=== PATIENT | female | born 1995 | race Caucasian/White ===

== ENCOUNTER 2017-12-27 09:09 | Emergency (ER) | payer MEDICAID, OTHER ==
[~2017-12-27] VITALS: Ht 160 cm; Wt 64.0 kg
[~2017-12-27 09:09] MED LIST: AC500T PO; CPR500T PO; DCS100C PO; DICY10CA59 PO; DOCU100C37 PO; DOXY1TAB3 PO; FAMO20TA5 PO; FERR325T5 PO; HYDR-3720 PO; IBP600T1 PO; IBUP-1773 PO; Ibuprofen PO; METR500T PO; ONDA4TAB8 PO; ONDA8TAB9 PO; OXYC-12 PO; PNV91TAB3 PO; PREN1TAB39 PO; PREN1TAB86 PO; PRM25T PO
--- OUTSIDE RECORDS SUMMARY | 2017-12-27 09:18 | XMS REPORT | Continuity of Care Document ---
Demographics Preferred Language Unknown Marital Status Unknown Buddhism Affiliation Unknown Race Unknown Ethnic Group Unknown Author Author [facility] Address Unknown Phone Unavailable Allergies Active Description Code Type Severity Reaction Onset Reported/Identified Relationship to Patient Clinical Status Yes No Known Drug Allergies [id number] Drug Allergy Unknown N/A 05/04/2016 Medications There is no data. Problems Date Dx Coded Attending Type Code Diagnosis Diagnosed By 11/02/2011 Ot 646.83 PREG COMPL NEC-ANTEPART 11/02/2011 Ot 787.01 NAUSEA WITH VOMITING 11/02/2011 Ot 789.00 ABDOMINAL PAIN, UNSPECIFIED SITE 12/19/2011 Ot 646.83 PREG COMPL NEC-ANTEPART 12/19/2011 Ot 789.00 ABDOMINAL PAIN, UNSPECIFIED SITE 12/29/2011 Ot 644.03 THRT WILSON LABOR-ANTEPART 02/22/2012 Ot 644.13 THREAT LABOR NEC-ANTEPAR 02/29/2012 Ot 657.01 POLYHYDRAMNIOS,DEL W OR W/O MENTN ANTEPA 02/29/2012 Ot 659.71 ABN DEL FET HT RT/RHYTHM,W OR W/O MENTIO 02/29/2012 Ot 663.31 CORD ENTANGLE NEC-DELIV 02/29/2012 Ot V06.1 DIPHTHERIA- TETANUS-PERTUSSIS, COMBINED [ 02/29/2012 Ot V27.0 DELIVER- SINGLE LIVEBORN 01/01/2013 V03.89 MENINGOCOCCAL DX 03/07/2013 BRIEN MIXON Ot 276.51 DEHYDRATION 03/07/2013 BRIEN MIXON Ot 535.50 UNSP GASTRITIS GASTRODUODENITIS W/O ME 03/07/2013 BRIEN MIXON Ot 599.0 URIN TRACT INFECTION NOS 03/07/2013 BRIEN MIXON Ot 789.06 ABDOMINAL PAIN, EPIGASTRIC 07/16/2013 LO OLIVEIRA, SILKE Gayle Ot 616.10 VAGINITIS NOS 07/16/2013 LO OLIVEIRA, SILKE Gayle Ot 789.00 ABDOMINAL PAIN, UNSPECIFIED SITE 04/16/2014 CHAU OLIVEIRA, VANNA Abernathy Ot 661.21 UTERINE INERT NEC-DELIV 04/16/2014 CHAU OLIVEIRA, VANNA Abernathy Ot V06.1 [id number], COMBINED [ 04/16/2014 CHAU OLIVEIRA, VANNA Abernathy Ot V23.7 INSUFFICIENT CARE 04/16/2014 CHAU OLIVEIRA, VANNA Abernathy Ot V27.0 DELIVER-SINGLE LIVEBORN 08/01/2015 Ot 646.83 08/01/2015 Ot 789.00 08/02/2015 RADHIKA BENITEZ FATUMA Bonds Ot G44.209 TENSION-TYPE HEADACHE, UNSPECIFIED, NOT 08/02/2015 RADHIKA BENITEZ FATUMA Bonds Ot Z33.1 STATE, INCIDENTAL 08/16/2015 LO OLIVEIRA, SILKE Gayle Ot O21.0 MILD HYPEREMESIS GRAVIDARUM 08/16/2015 OL OLIVEIRA, SILKE Gayle Ot Z3A.00 WEEKS OF GESTATION OF NOT SPEC 08/16/2015 Ot 646.83 08/16/2015 Ot 789.00 11/02/2015 Ot 646.83 11/02/2015 Ot 789.00 11/02/2015 JASSI MONTEZ DO Ot N89.8 OTHER SPECIFIED NONINFLAMMATORY DISORDER 11/02/2015 JASSI MONTEZ DO Ot O99.89 OTH DISEASES AND CONDITIONS COMPL PREG/C 11/02/2015 JASSI MONTEZ DO Ot Z3A.20 20 WEEKS GESTATION OF 12/01/2015 JASSI MONTEZ DO Ot N89.8 12/01/2015 JASSI MONTEZ DO Ot O99.89 12/01/2015 JASSI MONTEZ DO Ot Z3A.20 12/24/2015 Ot 646.83 PREG COMPL NEC-ANTEPART 12/24/2015 Ot 789.00 ABDOMINAL PAIN, UNSPECIFIED SITE 12/25/2015 VANNA RITCHIE MD Ot O60.03 LABOR WITHOUT DELIVERY, THIRD TR 12/25/2015 VANNA RITCHIE MD, Ot Z3A.28 28 WEEKS GESTATION OF 12/27/2015 VANNA RITCHIE MD, Ot O60.03 LABOR WITHOUT DELIVERY, THIRD TR 12/27/2015 VANNA RITCHIE MD, Ot Z3A.28 28 WEEKS GESTATION OF 02/05/2016 Ot 646.83 PREG COMPL NEC-ANTEPART 02/05/2016 Ot 789.00 ABDOMINAL PAIN, UNSPECIFIED SITE 02/05/2016 VANNA RITCHIE MD Ot O47.9 FALSE LABOR, UNSPECIFIED 02/05/2016 VANNA RITCHIE MD, Ot Z3A.00 WEEKS OF GESTATION OF NOT SPEC 02/11/2016 VANNA RITCHIE MD, Ot O47.9 FALSE LABOR, UNSPECIFIED 02/11/2016 VANNA RITCHIE MD, Ot Z3A.00 WEEKS OF GESTATION OF NOT SPEC 03/02/2016 JASSI MONTEZ DO Ot D62 ACUTE POSTHEMORRHAGIC ANEMIA 03/02/2016 JASSI MONTEZ DO Ot D69.6 THROMBOCYTOPENIA, UNSPECIFIED 03/02/2016 JASSI MONTEZ DO Ot O23.93 UNSP TRACT INFECTION IN , TH 03/02/2016 JASSI MONTEZ DO Ot O45.93 PREMATURE SEPARATION OF PLACENTA, UNSP, 03/02/2016 JASSI MONTEZ DO Ot O90.81 ANEMIA OF THE PUERPERIUM 03/02/2016 JASSI MONTEZ DO Ot O99.13 OTH DIS OF THE BLD/BLD-FORM ORG/IMMUN ME 03/02/2016 JASSI MONTEZ DO Ot Z23 ENCOUNTER FOR IMMUNIZATION 03/02/2016 JASSI MONTEZ DO Ot Z37.0 SINGLE LIVE 03/02/2016 JASSI MONTEZ DO Ot Z3A.38 38 WEEKS GESTATION OF 03/09/2016 Ot 646.83 PREG COMPL NEC-ANTEPART 03/09/2016 Ot 789.00 ABDOMINAL PAIN, UNSPECIFIED SITE 03/15/2016 Ot 646.83 PREG COMPL NEC-ANTEPART 03/15/2016 Ot 789.00 ABDOMINAL PAIN, UNSPECIFIED SITE 05/02/2016 Ot 646.83 PREG COMPL NEC-ANTEPART 05/02/2016 Ot 789.00 ABDOMINAL PAIN, UNSPECIFIED SITE 05/04/2016 MEI GOODEN APRN Ot K58.0 IRRITABLE BOWEL SYNDROME WITH DIARRHEA 05/05/2016 MEI GOODEN APRN Ot K58.0 IRRITABLE BOWEL SYNDROME WITH DIARRHEA Procedures Code Description Performed By Performed On 72.71 02/27/2012 73.6 04/14/2014 [id number] 03/01/2016 Results Test Result Range Complete urinalysis with reflex to culture - 05/04/16 20:46 Urine color determination YELLOW NRG Urine clarity determination CLEAR NRG Urine pH measurement by test strip 5 5-9 Specific gravity of urine by test strip 1.020 1.016- 1.022 Urine protein assay by test strip, semi-quantitative NEGATIVE NEGATIVE Urine glucose detection by automated test strip NEGATIVE NEGATIVE Erythrocytes detection in urine sediment by light microscopy 1+ NEGATIVE Urine ketones detection by automated test strip NEGATIVE NEGATIVE Urine nitrite detection by test strip NEGATIVE NEGATIVE Urine total bilirubin detection by test strip NEGATIVE NEGATIVE Urine urobilinogen measurement by automated test strip (mass/volume) NORMAL NORMAL Urine leukocyte esterase detection by dipstick NEGATIVE NEGATIVE Automated urine sediment erythrocyte count by microscopy (number/high power field) [HPF] NRG Automated urine sediment leukocyte count by microscopy (number/high power field ) RARE NRG Bacteria detection in urine sediment by light microscopy TRACE NRG Squamous epithelial cells detection in urine sediment by light microscopy 2-5 NRG Crystals detection in urine sediment by light microscopy NONE NRG Casts detection in urine sediment by light microscopy NONE NRG Mucus detection in urine sediment by light microscopy SMALL NRG Complete urinalysis with reflex to culture NO NRG Complete blood count (CBC) with automated white blood cell (WBC) differential - 05/04/16 20:55 Blood leukocytes automated count (number/volume) 6.5 10*3/uL 4.3-11.0 Blood erythrocytes automated count (number/volume) 4.64 10*6/uL 4.35-5.85 Venous blood hemoglobin measurement (mass/volume) 13.4 g/dL 11.5-16.0 Blood hematocrit (volume fraction) 40 % 35-52 Automated erythrocyte mean corpuscular volume 86 [foz_us] 80-99 Automated erythrocyte mean corpuscular hemoglobin (mass per erythrocyte) 29 pg 25-34 Automated erythrocyte mean corpuscular hemoglobin concentration measurement ( mass/volume) 34 g/dL 32-36 Automated erythrocyte distribution width ratio 14.5 % 10.0-14.5 Automated blood platelet count (count/volume) 243 10*3/uL 130-400 Automated blood platelet mean volume measurement 10.7 [foz_us] 7.4-10.4 Automated blood neutrophils/100 leukocytes 56 % 42-75 Automated blood lymphocytes/100 leukocytes 36 % 12-44 Blood monocytes/100 leukocytes 7 % 0-12 Automated blood eosinophils/100 leukocytes 1 % 0-10 Automated blood basophils/100 leukocytes 0 % 0-10 Blood neutrophils automated count (number/volume) 3.6 10*3 1.8-7.8 Blood lymphocytes automated count (number/volume) 2.4 10*3 1.0-4.0 Blood monocytes automated count (number/volume) 0.5 10*3 0.0-1.0 Automated eosinophil count 0.1 10*3/uL 0.0-0.3 Automated blood basophil count (count/volume) 0.0 10*3/uL 0.0-0.1 Comprehensive metabolic panel - 05/04/16 20:55 Serum or plasma sodium measurement (moles/volume) 141 mmol/L 135-145 Serum or plasma potassium measurement (moles/volume) 3.7 mmol/L 3.6-5.0 Serum or plasma chloride measurement (moles/volume) 108 mmol/L 98-107 Carbon dioxide 20 mmol/L 21-32 Serum or plasma anion gap determination (moles/volume) 13 mmol/L 5-14 Serum or plasma urea nitrogen measurement (mass/volume) 13 mg/dL 7-18 Serum or plasma creatinine measurement (mass/volume) 0.73 mg/dL 0.60-1.30 Serum or plasma urea nitrogen/creatinine mass ratio 18 NRG Serum or plasma creatinine measurement with calculation of estimated glomerular filtration rate > NRG Serum or plasma glucose measurement (mass/volume) 89 mg/dL 70-105 Serum or plasma calcium measurement (mass/volume) 9.3 mg/dL 8.5-10.1 Serum or plasma total bilirubin measurement (mass/volume) 0.6 mg/dL 0.1-1.0 Serum or plasma alkaline phosphatase measurement (enzymatic activity/volume) 107 U/L 40-136 Serum or plasma aspartate aminotransferase measurement (enzymatic activity/ volume) 13 U/L 5-34 Serum or plasma alanine aminotransferase measurement (enzymatic activity/volume ) 18 U/L 0-55 Serum or plasma protein measurement (mass/volume) 7.3 g/dL 6.4-8.2 Serum or plasma albumin measurement (mass/volume) 4.2 g/dL 3.2-4.5 Lipase - 05/04/16 20:55 Lipase 45 U/L 8-78 Serum or plasma C reactive protein measurement (mass/volume) - 05/04/16 20:55 Serum or plasma C reactive protein measurement (mass/volume) 1.35 mg /dL 0.00-0.50 Erythrocyte sedimentation rate by westergren method - 05/04/16 20:55 Erythrocyte sedimentation rate by westergren method 11 mm 0-20 Complete blood count (CBC) with automated white blood cell (WBC) differential - 08/09/16 19:50 Blood leukocytes automated count (number/volume) 9.3 10*3/uL 4.3-11.0 Blood erythrocytes automated count (number/volume) 4.66 10*6/uL 4.35-5.85 Venous blood hemoglobin measurement (mass/volume) 13.6 g/dL 11.5-16.0 Blood hematocrit (volume fraction) 40 % 35-52 Automated erythrocyte mean corpuscular volume 86 [foz_us] 80-99 Automated erythrocyte mean corpuscular hemoglobin (mass per erythrocyte) 29 pg 25-34 Automated erythrocyte mean corpuscular hemoglobin concentration measurement ( mass/volume) 34 g/dL 32-36 Automated erythrocyte distribution width ratio 13.1 % 10.0-14.5 Automated blood platelet count (count/volume) 243 10*3/uL 130-400 Automated blood platelet mean volume measurement 10.9 [foz_us] 7.4-10.4 Automated blood neutrophils/100 leukocytes 77 % 42-75 Automated blood lymphocytes/100 leukocytes 17 % 12-44 Blood monocytes/100 leukocytes 6 % 0-12 Automated blood eosinophils/100 leukocytes 1 % 0-10 Automated blood basophils/100 leukocytes 0 % 0-10 Blood neutrophils automated count (number/volume) 7.1 10*3 1.8-7.8 Blood lymphocytes automated count (number/volume) 1.6 10*3 1.0-4.0 Blood monocytes automated count (number/volume) 0.5 10*3 0.0-1.0 Automated eosinophil count 0.1 10*3/uL 0.0-0.3 Automated blood basophil count (count/volume) 0.0 10*3/uL 0.0-0.1 Comprehensive metabolic panel - 08/09/16 19:50 Serum or plasma sodium measurement (moles/volume) 139 mmol/L 135-145 Serum or plasma potassium measurement (moles/volume) 3.4 mmol/L 3.6-5.0 Serum or plasma chloride measurement (moles/volume) 107 mmol/L 98-107 Carbon dioxide 22 mmol/L 21-32 Serum or plasma anion gap determination (moles/volume) 10 mmol/L 5-14 Serum or plasma urea nitrogen measurement (mass/volume) 8 mg/dL 7-18 Serum or plasma creatinine measurement (mass/volume) 0.71 mg/dL 0.60-1.30 Serum or plasma urea nitrogen/creatinine mass ratio 11 NRG Serum or plasma creatinine measurement with calculation of estimated glomerular filtration rate > NRG Serum or plasma glucose measurement (mass/volume) 128 mg/dL 70-105 Serum or plasma calcium measurement (mass/volume) 9.3 mg/dL 8.5-10.1 Serum or plasma total bilirubin measurement (mass/volume) 0.7 mg/dL 0.1-1.0 Serum or plasma alkaline phosphatase measurement (enzymatic activity/volume) 97 U/L 40-136 Serum or plasma aspartate aminotransferase measurement (enzymatic activity/ volume) 17 U/L 5-34 Serum or plasma alanine aminotransferase measurement (enzymatic activity/volume ) 13 U/L 0-55 Serum or plasma protein measurement (mass/volume) 6.8 g/dL 6.4-8.2 Serum or plasma albumin measurement (mass/volume) 4.2 g/dL 3.2-4.5 Magnesium - 08/09/16 19:50 Magnesium 2.0 mg/dL 1.8-2.4 Serum or plasma creatine kinase measurement (enzymatic activity/volume) - 08/09 19:50 Serum or plasma creatine kinase measurement (enzymatic activity/volume) 57 U/L 29-168 Serum or plasma creatine kinase MB measurement (enzymatic activity/volume) - 19:50 Serum or plasma creatine kinase MB measurement (enzymatic activity/volume) 0.7 ng/mL <6.6 Serum or plasma choriogonadotropin ( test) detection - 08/09/16 19:50 Serum or plasma choriogonadotropin ( test) detection NEGATIVE NEGATIVE Serum or plasma thyrotropin measurement by detection limit <=0.05 miu/l (units/ volume) - 08/09/16 19:50 Serum or plasma thyrotropin measurement by detection limit <=0.05 miu/l (units/ volume) 1.25 u[iU]/mL 0.35-4.94 Serum or plasma ethanol measurement (mass/volume) - 08/09/16 19:50 Serum or plasma ethanol measurement (mass/volume) < mg/dL <10 Complete urinalysis with reflex to culture - 08/09/16 21:20 Urine color determination YELLOW NRG Urine clarity determination VERY CLOUDY NRG Urine pH measurement by test strip 8 5-9 Specific gravity of urine by test strip 1.015 1.016- 1.022 Urine protein assay by test strip, semi-quantitative 1+ NEGATIVE Urine glucose detection by automated test strip NEGATIVE NEGATIVE Erythrocytes detection in urine sediment by light microscopy 1+ NEGATIVE Urine ketones detection by automated test strip NEGATIVE NEGATIVE Urine nitrite detection by test strip NEGATIVE NEGATIVE Urine total bilirubin detection by test strip NEGATIVE NEGATIVE Urine urobilinogen measurement by automated test strip (mass/volume) 1 mg/dL NORMAL Urine leukocyte esterase detection by dipstick NEGATIVE NEGATIVE Automated urine sediment erythrocyte count by microscopy (number/high power field) RARE NRG Automated urine sediment leukocyte count by microscopy (number/high power field ) NONE NRG Bacteria detection in urine sediment by light microscopy NONE NRG Squamous epithelial cells detection in urine sediment by light microscopy 0-2 NRG Crystals detection in urine sediment by light microscopy PRESENT NRG Casts detection in urine sediment by light microscopy NONE NRG Mucus detection in urine sediment by light microscopy NEGATIVE NRG Complete urinalysis with reflex to culture NO NRG Amorphous sediment detection in urine sediment by light microscopy LARGE JIM PHOSPHATE NRG Urine drug screening test - 08/09/16 21:20 Urine phencyclidine detection by screening method NEGATIVE NEGATIVE Urine benzodiazepines detection by screening method NEGATIVE NEGATIVE Urine cocaine detection NEGATIVE NEGATIVE Urine amphetamines detection by screening method NEGATIVE NEGATIVE Urine methamphetamine detection by screening method NEGATIVE NEGATIVE Urine cannabinoids detection by screening method NEGATIVE NEGATIVE Urine opiates detection by screening method NEGATIVE NEGATIVE Urine barbiturates detection NEGATIVE NEGATIVE Screening urine tricyclic antidepressants detection NEGATIVE NEGATIVE Urine methadone detection by screening method NEGATIVE NEGATIVE Urine oxycodone detection NEGATIVE NEGATIVE Urine propoxyphene detection NEGATIVE NEGATIVE CULTURE, URINE - 12/13/17 17:08 CULTURE, URINE, ROUTINE SEE NOTE NRG Encounters ACCT No. Visit Date/Time Discharge Status Pt. Type Provider Facility Loc./Unit Complaint [id number] 01/01/2013 13:24:00 Document Registration [id number] 08/05/2012 11:18:57 RECURRING [id number] 08/09/2016 19:42:00 08/09/2016 21:58:00 DIS Emergency RADHIKA FATUMA [facility] ER ANXIETY ATTACK [id number] 05/04/2016 20:42:00 05/04/2016 22:17:00 DIS Emergency MEI GOODEN DYE JIG OPERATOR [facility] ER ABD PAIN [id number] 02/29/2016 22:10:00 03/02/2016 15:30:00 DIS Inpatient JASSI MONTEZ DO [facility] LDRP LABOR [id number] 02/05/2016 21:22:00 02/05/2016 23:39:00 DIS Outpatient VANNA RITCHIE MD [facility] WSo CONTRACTIONS 34 WKS PREG [id number] 12/24/2015 22:47:00 12/25/2015 10:30:00 DIS Outpatient VANNA RITCHIE MD [facility] WSo CONTRACTIONS [id number] 11/02/2015 10:56:00 11/02/2015 13:16:00 DIS Outpatient JASSI MONTEZ DO [facility] WSo LEAKING FLUID 21 WKS PREG [id number] 08/16/2015 18:43:00 08/16/2015 19:12:00 DIS Emergency SILKE BLANCHARD MD [facility] ER VOMITING [id number] 08/01/2015 23:52:00 08/02/2015 02:01:00 DIS Emergency FTAUMA GARRIDO DO [facility] ER PASCUAL,LEFT ARM NUMBNESS,LEFT SIDE OF FACE NUMB [id number] 04/14/2014 18:11:00 04/16/2014 18:45:00 DIS Inpatient VANNA RITCHIE MD [facility] LDRP C/O CONTRACTIONS [id number] 04/14/2014 17:57:00 04/14/2014 23:59:59 CLS Emergency [id number] 07/16/2013 00:59:00 07/16/2013 03:16:00 DIS Emergency SILKE BLANCHARD MD [facility] ER ABD PAIN [id number] 03/07/2013 16:14:00 03/07/2013 20:10:00 DIS Emergency BRIEN MIXON [facility] ER ABD PAIN [id number] 02/26/2012 19:50:00 Document Registration [id number] 02/22/2012 20:13:00 Document Registration [id number] 12/29/2011 14:48:00 Document Registration [id number] 12/19/2011 08:37:00 Document Registration [id number] 11/10/2011 07:24:00 Document Registration [id number] 11/02/2011 12:46:00 Document Registration [id number] 12/13/2017 16:20:00 12/13/2017 23:59:59 [facility] Outpatient TAURUS TIM LAC [facility] [id number] 12/13/2017 16:20:00 Document Registration
[2017-12-27 09:50] LABS: BASOPHILS % (AUTO) 0 % (0-10); EOSINOPHILS % (AUTO) 1 % (0-10); HEMATOCRIT 41 % (35-52); HEMOGLOBIN 13.8 G/DL (11.5-16.0); LYMPHOCYTES # (AUTO) 1.2 X 10^3 (1.0-4.0); LYMPHOCYTES % (AUTO) 23 % (12-44); MEAN CORPUSCULAR HEMOGLOBIN 30 PG (25-34); MEAN CORPUSCULAR HGB CONC 33 G/DL (32-36); MEAN CORPUSCULAR VOLUME 90 FL (80-99); MEAN PLATELET VOLUME 10.3 FL (7.4-10.4); MONOCYTES # (AUTO) 0.4 X 10^3 (0.0-1.0); MONOCYTES % (AUTO) 6 % (0-12); NEUTROPHILS # (AUTO) 3.8 X 10^3 (1.8-7.8); NEUTROPHILS % (AUTO) 70 % (42-75); PLATELET COUNT 218 10^3/uL (130-400); RED CELL DISTRIBUTION WIDTH 13.3 % (10.0-14.5); WHITE BLOOD COUNT 5.5 10^3/uL (4.3-11.0)
[2017-12-27 10:08] LABS: BILIRUBIN,URINE NEGATIVE (NEGATIVE); CLARITY,URINE CLEAR; COLOR,URINE YELLOW; GLUCOSE, URINE (UA) NEGATIVE (NEGATIVE); KETONES,URINE NEGATIVE (NEGATIVE); LEUKOCYTE ESTERASE ,URINE 2+ (NEGATIVE); NITRITE,URINE NEGATIVE (NEGATIVE); PH,URINE 7 (5-9); PROTEIN,URINE 2+ (NEGATIVE); UROBILINOGEN,URINE 1 MG/DL (NORMAL)
[2017-12-27 10:16] LABS: AMORPHOUS SEDIMENT,UR MOD AMOR URATES /LPF; BACTERIA,URINE FEW /HPF; RBC,URINE >100 /HPF
--- NOTE | 2017-12-27 11:03 | ED GU-Female ---
General Chief Complaint: -Female Stated Complaint: VAG BLEEDING 5 WKS PREG Nursing Triage Note: PT AMBULATED TO ED RM 9 W/O DIFFICULTIES. PT STATED SHE JUST FOUND OUT THREE DAYS AGO THAT SHE IS APPROXIMATLEY 5 WEEKS . STATES LMP WAS 2017. PT STATED SHE WOKE UP IN THE MIDDLE OF THE NIGHT LAST NIGHT AND HER UNDERWEAR AND PANTS WERE COVERED IN BLOOD. PT STATES WHEN GOING TO THE BATHROOM THIS MORNING THERE WERE BLOOD CLOTS WHEN SHE WIPED. PT STATES LAST SEXUAL ENCOUNTER WAS LAST WEEK. PT STATES SHE IS HAVING MILD CRAMPING RATED 3/10. Nursing Sepsis Screen: No Definite Risk Source: patient Exam Limitations: no limitations History of Present Illness Date Seen by Provider: Dec 27, 2017 Time Seen by Provider: 10:58 Initial Comments The patient is a 22-year-old white female who presents to the emergency room with reports of vaginal bleeding. She states that she found out earlier this week that she was . She would estimate by virtue of her last period being approximately 3/10 that she is 5 weeks . Her last sexual activity was a week ago. She reported reports crampy pain like would be experienced with menstrual period last night but not so much today. She had freddy blood in her bed clothes on awaking this morning. She previously had babies in 2011, 14, 16, Timing/Duration: yesterday Severity/Quality: moderate Location: vaginal Allergies and Home Medications Allergies Coded Allergies: No Known Drug Allergies (Unverified , 05/04/16) Home Medications No Active Prescriptions or Reported Meds Patient Home Medication List Home Medication List Reviewed: Yes Review of Systems Constitutional: see HPI EENTM: no symptoms reported Respiratory: no symptoms reported Cardiovascular: no symptoms reported Gastrointestinal: no symptoms reported Genitourinary: see HPI Musculoskeletal: no symptoms reported Past Vloskds-Zvsrgc-Nulice Hx Patient Social History Alcohol Use: Denies Use Recreational Drug Use: No Smoking Status: Former Smoker Recent Foreign Travel: No Contact w/Someone Who Travel: No Recent Infectious Disease Expo: Yes Recent Hopitalizations: No Physical Abuse: No Sexual Abuse: No Immunizations Up To Date Tetanus Booster (TDap): Less than 5yrs Date of Influenza Vaccine: Jul 26, 2016 Seasonal Allergies Seasonal Allergies: No Past Medical History Surgeries: No Respiratory: No Cardiac: No Neurological: No Headaches /Migraines : Yes (PT STATES LMP 11/17/2017) Reproductive Disorders: No Female Reproductive Disorders: Denies Sexually Transmitted Disease: No HIV/AIDS: No Gastrointestinal: No Musculoskeletal: No Endocrine: No Cancer: No Psychosocial: No Nursing Suicide Risk Score: 0 Integumentary: No Blood Disorders: No Family Medical History Diabetes mellitus MATERNAL GRANDFATHER Hypertension MATERNAL GRANDFATHER MATERNAL GRANDMOTHER Myocardial infarction PATERNAL GRANDFATHER GI Disease Physical Exam Vital Signs Vital Signs - First Documented 12/27/17 09:15 Temp 98.7 Pulse 73 Resp 16 B/P (MAP) 135/75 (95) O2 Delivery Room Air Capillary Refill : Less Than 3 Seconds General Appearance: WD/WN, no apparent distress HEENT: normal ENT inspection Neck: full range of motion Cardiovascular: normal peripheral pulses, regular rate, rhythm, no edema, no gallop, no JVD, no murmur Respiratory: chest non-tender, lungs clear, normal breath sounds, no respiratory distress, no accessory muscle use, respiratory distress Gastrointestinal: normal bowel sounds, non tender, soft, no organomegaly, no pulsatile mass, abnormal bowel sounds Progress/Results/Core Measures Suspected Sepsis Recent Fever Within 48 Hours: No Infection Criteria Present: None New/Unexplained Altered Menta: No Sepsis Screen: No Definite Risk SIRS Temperature:98.7 Pulse: 73 Respiratory Rate: 16 Laboratory Tests 12/27/17 09:42: White Blood Count 5.5 Blood Pressure 135 /75 Mean: 95 Laboratory Tests 12/27/17 09:42: Platelet Count 218 Results/Orders Lab Results Laboratory Tests Test 12/27/17 09:42 12/27/17 10:00 Range/Units White Blood Count 5.5 4.3-11.0 10^3/uL Red Blood Count 4.60 4.35-5.85 10^6/uL Hemoglobin 13.8 11.5-16.0 G/DL Hematocrit 41 35-52 % Mean Corpuscular Volume 90 80-99 FL Mean Corpuscular Hemoglobin 30 25-34 PG Mean Corpuscular Hemoglobin Concent 33 32-36 G/DL Red Cell Distribution Width 13.3 10.0-14.5 % Platelet Count 218 130-400 10^3/uL Mean Platelet Volume 10.3 7.4-10.4 FL Neutrophils (%) (Auto) 70 42-75 % Lymphocytes (%) (Auto) 23 12-44 % Monocytes (%) (Auto) 6 0-12 % Eosinophils (%) (Auto) 1 0-10 % Basophils (%) (Auto) 0 0-10 % Neutrophils # (Auto) 3.8 1.8-7.8 X 10^3 Lymphocytes # (Auto) 1.2 1.0-4.0 X 10^3 Monocytes # (Auto) 0.4 0.0-1.0 X 10^3 Eosinophils # (Auto) 0.0 0.0-0.3 10^3/uL Basophils # (Auto) 0.0 0.0-0.1 10^3/uL Human Chorionic Gonadotropin, Quant 7 H <5 MIU/ML Urine Color YELLOW Urine Clarity CLEAR Urine pH 7 5-9 Urine Specific Newell 1.015 L 1.016-1.022 Urine Protein 2+ H NEGATIVE Urine Glucose (UA) NEGATIVE NEGATIVE Urine Ketones NEGATIVE NEGATIVE Urine Nitrite NEGATIVE NEGATIVE Urine Bilirubin NEGATIVE NEGATIVE Urine Urobilinogen 1 NORMAL MG/DL Urine Leukocyte Esterase 2+ H NEGATIVE Urine RBC (Auto) 5+ H NEGATIVE Urine RBC >100 H /HPF Urine WBC 5-10 H /HPF Urine Squamous Epithelial Cells 2-5 /HPF Urine Crystals NONE /LPF Urine Amorphous Sediment MOD JIM URATES H /LPF Urine Bacteria FEW H /HPF Urine Casts NONE /LPF Urine Mucus NEGATIVE /LPF Urine Culture Indicated YES My Orders Orders - LAUREN ROCHA MD Cbc With Automated Diff (12/27/17 09:33) Ua Culture If Indicated (12/27/17 09:33) Hcg,Quantitative (12/27/17 09:54) Urine Culture (12/27/17 10:00) Vital Signs/I&O 12/27/17 09:15 Temp 98.7 Pulse 73 Resp 16 B/P (MAP) 135/75 (95) O2 Delivery Room Air Capillary Refill : Less Than 3 Seconds Blood Pressure Mean: 95 Departure Communication (Admissions) [address] Lincoln at his office. It was elected to explain the findings to the patient and to have her see him early next week in the office. If symptomatic a sonogram will be obtained at that time. Impression Primary Impression: Miscarriage Additional Impression: miscarriage Disposition: 01 HOME, SELF-CARE Condition: Stable/Unchanged Departure-Patient Inst. Decision time for Depature: 11:03 Referrals: MARIANO LINCOLN MD (PCP/Family) Primary Care Physician Add. Discharge Instructions: All discharge instructions reviewed with patient and/or family. Voiced understanding. Expect this to be like a heavy period. If pain and heavier flow occur or if you feel lightheaded when standing return to emergency room. Call Dr. LINCOLN'S office to make an appointment for a follow-up early next week. Scripts No Active Prescriptions or Reported Meds LAUREN ROCHA MD Dec 27, 2017 11:03
[2017-12-27 11:51] VITALS: BP 130/72
== END 2017-12-27 11:50 | disposition home or self-care (01) ==
LOC: EDUNIT# 09:09 → ER 09:12
DX: O03.9 Complete or unspecified spontaneous abortion without complication (principal); O99.351 Diseases of the nervous system complicating pregnancy, first trimester; G43.909 Migraine, unspecified, not intractable, without status migrainosus; Z3A.01 Less than 8 weeks gestation of pregnancy; Z87.891 Personal history of nicotine dependence; Z82.49 Family history of ischemic heart disease and other diseases of the circulatory system
CPT/HCPCS: 36415; 81000; 84702; 85025; 87088; 99282

== ENCOUNTER 2018-01-06 13:47 | Emergency (ER) | payer MEDICAID ==
[~2018-01-06] VITALS: Ht 160 cm; Wt 62.6 kg
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
[2018-01-06 15:39] VITALS: BP 120/68
== END 2018-01-06 15:39 | disposition home or self-care (01) ==
LOC: EDUNIT# 13:47 → ER 13:50
DX: S05.12XA Contusion of eyeball and orbital tissues, left eye, initial encounter (principal); R40.2142 Coma scale, eyes open, spontaneous, at arrival to emergency department; R40.2252 Coma scale, best verbal response, oriented, at arrival to emergency department; R40.2362 Coma scale, best motor response, obeys commands, at arrival to emergency department; G43.909 Migraine, unspecified, not intractable, without status migrainosus; F17.210 Nicotine dependence, cigarettes, uncomplicated; Y04.8XXA Assault by other bodily force, initial encounter
CPT/HCPCS: 70450

== ENCOUNTER 2018-05-22 19:20 | Emergency (ER) | payer MEDICAID | END 2018-05-22 19:22 | disposition left against medical advice (07) | LOC: EDUNIT# 19:20 → ER 19:21 | DX: K92.0 Hematemesis (principal) ==

== ENCOUNTER 2018-07-18 15:52 | Emergency (ER) | payer MEDICAID, OTHER ==
[~2018-07-18] VITALS: Ht 160 cm; Wt 61.2 kg
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
[2018-07-18] MEDS ORDERED: KETOROLAC 30 MG/ML VIAL IVP ONE (16:15)
[2018-07-18 16:27] LABS: BASOPHILS % (AUTO) 0 % (0-10); EOSINOPHILS # (AUTO) 0.1 10^3/uL (0.0-0.3); EOSINOPHILS % (AUTO) 1 % (0-10); HEMATOCRIT 44 % (35-52); HEMOGLOBIN 14.4 G/DL (11.5-16.0); LYMPHOCYTES # (AUTO) 1.7 X 10^3 (1.0-4.0); LYMPHOCYTES % (AUTO) 31 % (12-44); MEAN CORPUSCULAR HEMOGLOBIN 30 PG (25-34); MEAN CORPUSCULAR HGB CONC 33 G/DL (32-36); MEAN CORPUSCULAR VOLUME 90 FL (80-99); MEAN PLATELET VOLUME 10.2 FL (7.4-10.4); MONOCYTES # (AUTO) 0.3 X 10^3 (0.0-1.0); MONOCYTES % (AUTO) 6 % (0-12); NEUTROPHILS # (AUTO) 3.5 X 10^3 (1.8-7.8); NEUTROPHILS % (AUTO) 62 % (42-75); PLATELET COUNT 247 10^3/uL (130-400); RED BLOOD COUNT 4.86 10^6/uL (4.35-5.85); RED CELL DISTRIBUTION WIDTH 13.3 % (10.0-14.5); WHITE BLOOD COUNT 5.6 10^3/uL (4.3-11.0)
[2018-07-18 16:28] LABS: BILIRUBIN,URINE NEGATIVE (NEGATIVE); CLARITY,URINE SLIGHTLY CLOUDY; COLOR,URINE YELLOW; GLUCOSE, URINE (UA) NEGATIVE (NEGATIVE); KETONES,URINE NEGATIVE (NEGATIVE); LEUKOCYTE ESTERASE ,URINE 1+ (NEGATIVE); NITRITE,URINE NEGATIVE (NEGATIVE); PH,URINE 8 (5-9); PROTEIN,URINE NEGATIVE (NEGATIVE); UROBILINOGEN,URINE NORMAL (NORMAL)
[2018-07-18] MEDS ORDERED: AZITHROMYCIN 250 MG TAB (ZITHROMAX) PO SCH (16:30)
[2018-07-18] MEDS ORDERED: cefTRIAXone FOR IV USE 1,000 MG in NS (IVPB) 50 ML IV ONE (16:30)
[2018-07-18 16:34] LABS: BACTERIA,URINE TRACE /HPF; WBC,URINE 0-2 /HPF
[2018-07-18 16:50] LABS: ALANINE AMINOTRANSFERASE 13 U/L (0-55); ALBUMIN 4.6 GM/DL (3.2-4.5); ALKALINE PHOSPHATASE 74 U/L (40-136); BILIRUBIN,TOTAL 0.7 MG/DL (0.1-1.0); BUN/CREATININE RATIO 10; CALCIUM 9.8 MG/DL (8.5-10.1); CARBON DIOXIDE 24 MMOL/L (21-32); CHLORIDE 104 MMOL/L (98-107); CREATININE SERUM 0.82 MG/DL (0.60-1.30); GFR ESTIMATED > 60; GLUCOSE 91 MG/DL (70-105); POTASSIUM 4.3 MMOL/L (3.6-5.0); SODIUM 140 MMOL/L (135-145); TOTAL PROTEIN 7.7 GM/DL (6.4-8.2)
--- NOTE | 2018-07-18 16:55 | Diagnostic Imaging Report ---
INDICATION: Pelvic pain x 1 week after intercourse. EXAMINATION: Pelvic ultrasound. FINDINGS: The uterus measures 8.4 x 5.0 x 4.8 cm. Endometrial stripe is mildly thickened at 2 cm. No focal endometrial masses. Right ovary measures 4.0 x 3.0 x 3.2 cm. There is a simple cyst in the right ovary, measuring 2.7 cm. There are several follicular cysts. The left ovary measures 2.2 x 2.6 x 2.0 cm. There do appear to be varicosities within the myometrium of the uterus. IMPRESSION: 1. Simple cyst of right ovary, measuring 2.7 cm. 2. There are some varicosities noted within the myometrium of the uterus. Dictated by: Dictated on workstation # [id number]
[2018-07-18] MEDS ORDERED: HYDR-4226 PO (17:19)
[2018-07-18] MEDS ORDERED: METR-197 PO (17:19)
[2018-07-18 18:01] VITALS: BP 113/80
== END 2018-07-18 17:28 | disposition home or self-care (01) ==
LOC: EDUNIT# 15:52 → ER 15:53
DX: N76.0 Acute vaginitis (principal); B96.89 Other specified bacterial agents as the cause of diseases classified elsewhere; N83.201 Unspecified ovarian cyst, right side; G43.909 Migraine, unspecified, not intractable, without status migrainosus; Z82.49 Family history of ischemic heart disease and other diseases of the circulatory system
CPT/HCPCS: 36415; 76830; 76856; 80053; 81000; 84703; 85025; 87070; 87205; 87210; 87491; 87591

== ENCOUNTER 2018-09-15 09:45 | Emergency (ER) | payer OTHER ==
[~2018-09-15] VITALS: Ht 152.4 cm; Wt 63.5 kg
[~2018-09-15 09:45] MED LIST changes: +HYDR-4226 PO; +METR-197 PO
[2018-09-15] MEDS ORDERED: KETOROLAC 30 MG/ML VIAL IM ONE (10:00)
--- NOTE | 2018-09-15 10:00 | ED Back Pain ---
General Stated Complaint: LOWER BACK PAIN Source of Information: Patient, Other Exam Limitations: No Limitations History of Present Illness Date Seen by Provider: Sep 15, 2018 Time Seen by Provider: 09:46 Initial Comments The patient presents to ER by private conveyance with a chief complaint of low back pain and bilateral she woke up with this morning. She's not taken anything for it. She decided come the ER to get it checked out. She's having no nausea fevers chills but she does have some painful urination. She does not have a history of kidney stones nor has she been doing anything particular strenuous lately. She does not remember any inciting event to her back pain. She is not on control. Allergies and Home Medications Allergies Coded Allergies: No Known Drug Allergies (Unverified , 05/04/16) Patient Home Medication List Home Medication List Reviewed: Yes Review of Systems Constitutional: No chills, No malaise EENTM: No ear discharge, No ear pain Respiratory: No cough, No short of breath Cardiovascular: No chest pain, No edema Gastrointestinal: No abdominal pain, No constipation, No diarrhea Genitourinary: No discharge; dysuria; No frequency, No hematuria LMP: Aug 23, 2018 (unknown) Control/STD Prophylaxis: None Past Ofcbyya-Frmbbm-Taxgtp Hx Patient Social History Alcohol Use: Occasionally Uses Alcohol Beverage of Choice: Cheap Liquor Recreational Drug Use: No Type Used: Cigarettes (third pack) Recent Foreign Travel: No Contact w/Someone Who Travel: No Recent Hopitalizations: No Immunizations Up To Date Tetanus Booster (TDap): Less than 5yrs Date of Influenza Vaccine: Jul 26, 2016 Seasonal Allergies Seasonal Allergies: No Past Medical History Surgeries: No Respiratory: No Cardiac: No Neurological: No Headaches /Migraines Reproductive Disorders: No Female Reproductive Disorders: Denies Sexually Transmitted Disease: No HIV/AIDS: No Gastrointestinal: No Musculoskeletal: No Endocrine: No Cancer: No Psychosocial: No Integumentary: No Blood Disorders: No Family Medical History Diabetes mellitus MATERNAL GRANDFATHER Hypertension MATERNAL GRANDFATHER MATERNAL GRANDMOTHER Myocardial infarction PATERNAL GRANDFATHER GI Disease Physical Exam Vital Signs Vital Signs - First Documented 09/15/18 09:52 Temp 98.0 Pulse 93 Resp 18 B/P (MAP) 117/61 (79) Pulse Ox 100 Capillary Refill : Height, Weight, BMI Height: 5'3.00" Weight: 135lbs. 0oz. 61.303253lh; 23.03 BMI Method:Stated General Appearance: No Apparent Distress, WD/WN HEENT: PERRL/EOMI, Moist Mucous Membranes Neck: Full Range of Motion, Normal Inspection, Non Tender, Supple Cardiovascular: No Edema, Normal Peripheral Pulses Respiratory: No Accessory Muscle Use, No Respiratory Distress Peripheral Pulses: 2+ Radial Pulses (R), 2+ Radial Pulses (L) Back: Normal Inspection, No Vertebral Tenderness, CVA Tenderness (L), CVA Tenderness (R), Other (paraspinous muscles tender to palpation) Extremity: Normal Capillary Refill, Normal Inspection, No Pedal Edema Neurologic/Psychiatric: Alert, Oriented x3 Skin: Normal Color, Warm/Dry Progress/Results/Core Measures Results/Orders Lab Results Laboratory Tests Test 09/15/18 10:00 Range/Units Urine Color YELLOW Urine Clarity VERY CLOUDY H Urine pH 7 5-9 Urine Specific [place] 1.010 L 1.016-1.022 Urine Protein 3+ H NEGATIVE Urine Glucose (UA) NEGATIVE NEGATIVE Urine Ketones NEGATIVE NEGATIVE Urine Nitrite NEGATIVE NEGATIVE Urine Bilirubin NEGATIVE NEGATIVE Urine Urobilinogen NORMAL NORMAL MG/DL Urine Leukocyte Esterase 3+ H NEGATIVE Urine RBC (Auto) 5+ H NEGATIVE Urine RBC TNTC H /HPF Urine WBC TNTC H /HPF Urine Crystals /LPF Urine Bacteria LARGE H /HPF Urine Casts NONE /LPF Urine Mucus LARGE H /LPF Urine Culture Indicated YES My Orders Orders - JERICA HURTADO Ketorolac Injection (Toradol Injection) (09/15/18 10:00) Ua Culture If Indicated (09/15/18 09:56) Urine Bedside (09/15/18 09:56) Urine Culture (09/15/18 10:00) Medications Given in ED Current Medications Medications Dose Ordered Sig/Ines Route Start Time Stop Time Status Last Admin Dose Admin Ketorolac Tromethamine 30 mg ONCE ONCE IM 09/15/18 10:00 09/15/18 10:01 DC 09/15/18 10:08 30 MG Vital Signs/I&O 09/15/18 09:52 Temp 98.0 Pulse 93 Resp 18 B/P (MAP) 117/61 (79) Pulse Ox 100 Progress Progress Note #1: Time: 10:00 Progress Note Spontaneous nontraumatic back pain most likely UTI versus less likely a kidney stone. Could also be strain/sprain of the paraspinous muscles. Progress Note #2: Time: 10:37 Progress Note We did offer to do a CT scan looking for kidney stone but since her pain is not very significant when she came here and is getting better after the Toradol she preferred just pursue antibiotics and follow-up with primary care as necessary. Departure Impression Primary Impression: UTI (urinary tract infection) Qualified Codes: N30.01 - Acute cystitis with hematuria Disposition: HOME, SELF-CARE Condition: Stable Departure-Patient Inst. Decision time for Depature: 10:38 Referrals: MARIANO DE LA VEGA MD (PCP/Family) Primary Care Physician Patient Instructions: Urinary Tract Infection, Adult (DC) Add. Discharge Instructions: Drink lots of water. Use Tylenol and/or ibuprofen for your back discomfort. project superintendent the Bactrim and take one tablet twice a day for the next week. If you' re not seeing improvement by day 3 or 4 follow up with primary care. Scripts Sulfamethoxazole/Trimethoprim (Bactrim Ds Tablet) 1 Each Tablet 1 EACH PO BID for 7 Days, #14 TAB 0 Refills Prov: JERICA HURTADO 09/15/18 JERICA HURTADO Sep 15, 2018 10:00
[2018-09-15 10:08] LABS: BILIRUBIN,URINE NEGATIVE (NEGATIVE); CLARITY,URINE VERY CLOUDY; COLOR,URINE YELLOW; GLUCOSE, URINE (UA) NEGATIVE (NEGATIVE); KETONES,URINE NEGATIVE (NEGATIVE); LEUKOCYTE ESTERASE ,URINE 3+ (NEGATIVE); NITRITE,URINE NEGATIVE (NEGATIVE); PH,URINE 7 (5-9); PROTEIN,URINE 3+ (NEGATIVE); UROBILINOGEN,URINE NORMAL (NORMAL)
[2018-09-15 10:32] LABS: BACTERIA,URINE LARGE /HPF; RBC,URINE TNTC /HPF; WBC,URINE TNTC /HPF
--- NOTE | 2018-09-15 10:35 | NUR ---
RESTING IN BED. STATES THE MED HAS HELPED A LITTLE. DENIES NEEDING ANTHTING ELSE FOR PAIN.
[2018-09-15] MEDS ORDERED: SULF1TAB35 PO (10:39)
[2018-09-15 10:45] VITALS: BP 117/61
== END 2018-09-15 10:47 | disposition home or self-care (01) ==
LOC: EDUNIT# 09:45 → ER 09:45
DX: N39.0 Urinary tract infection, site not specified (principal); G43.909 Migraine, unspecified, not intractable, without status migrainosus; Z82.49 Family history of ischemic heart disease and other diseases of the circulatory system
CPT/HCPCS: 81000; 84703; 87077; 87088; 96372; 99284

== ENCOUNTER 2018-10-06 19:53 | Emergency (ER) | payer OTHER ==
[~2018-10-06] VITALS: Ht 160 cm; Wt 65.8 kg
[~2018-10-06 19:53] MED LIST changes: +METR-145 PO; -METR-197 PO; +SULF1TAB35 PO
--- OUTSIDE RECORDS SUMMARY | 2018-10-06 19:58 | XMS REPORT ---
Author Author CHASITY PATEL [facility] Address [address] [place] [address] Care Team Providers Care Assistance Coordinator Name Role Phone CHASITY PATEL Unavailable PROBLEMS Type Condition ICD9-CM Code [id number] Code Onset Dates Condition Status SNOMED Code Problem Missed period N92.6 Active 56435004 Problem MENINGOCOCCAL DX V03.89 Active 48688147 ALLERGIES No Known Allergies ENCOUNTERS Encounter Location Date Diagnosis [facility] [id number] [place] [phone] Feb, Sore throat J02.9 ; Missed period N92.6 and Tonsil, abscess J36 [facility] [id number] [place] [phone] Dec, Dysuria R30.0 and Acute cystitis with hematuria N30.01 [facility] [address] [phone] Sep, Bronchitis J40 [facility] [id number] [place] [phone] Dec, [facility] [id number] [place] [phone] Jul, [facility] [id number] [place] [phone] Jul, IMMUNIZATIONS No Known Immunizations SOCIAL HISTORY Never Assessed REASON FOR VISIT uti Pt c/o pain during urination along with frequency for about 4 days RAMILA Chappell PLAN OF CARE Activity Details Follow Up prn Reason: VITAL SIGNS Weight 140.6 lbs 2017-12-13 Temperature 98.2 degrees Fahrenheit 2017-12-13 Heart Rate 80 bpm 2017-12-13 Respiratory Rate 18 2017-12-13 Blood pressure systolic 112 mmHg 2017-12-13 Blood pressure diastolic 62 mmHg 2017-12-13 MEDICATIONS Medication Instructions Dosage Frequency Start Date End Date Duration Status Pyridium 200 mg Orally Three times a day 1 tablet after meals 8h Dec, Dec, 05 days Active Cipro 500 mg Orally twice a day 1 tablet 12h Dec, Dec, 07 days Active ProAir HFA 108 (90 Base) MCG/ACT Inhalation every 6 hrs 2 puffs as needed 6h Sep, 7 days Active RESULTS No Results PROCEDURES Procedure Date Ordered Result Body Site URINALYSIS, AUTO, W/O SCOPE December 13, 2017 LAB [facility] December 13, 2017 INSTRUCTIONS MEDICATIONS ADMINISTERED No Known Medications
--- OUTSIDE RECORDS SUMMARY | 2018-10-06 19:58 | XMS REPORT ---
Author Author CHASITY PATEL [facility] Address [address] [place] [address] Care Team Providers Care Lens Inserter Name Role Phone CHASITY PATEL Unavailable PROBLEMS Type Condition ICD9-CM Code [id number] Code Onset Dates Condition Status SNOMED Code Problem Missed period N92.6 Active 03078522 Problem MENINGOCOCCAL DX V03.89 Active 07400560 ALLERGIES No Known Allergies ENCOUNTERS Encounter Location Date Diagnosis [facility] [id number] [place] [phone] Feb, Sore throat J02.9 ; Missed period N92.6 and Tonsil, abscess J36 [facility] [id number] [place] [phone] Dec, Dysuria R30.0 and Acute cystitis with hematuria N30.01 [facility] [address] [phone] Sep, Bronchitis J40 [facility] [id number] [place] [phone] Dec, [facility] [id number] [place] [phone] Jul, [place] [id number] [place] [phone] Jul, IMMUNIZATIONS No Known Immunizations SOCIAL HISTORY Never Assessed REASON FOR VISIT sore throat, headache, bilateral earache, nausea since yesterday. [email or web address], last menstural period was 01/24/2018. would like test also. PLAN OF CARE Activity Details Follow Up prn Reason: VITAL SIGNS Height 63 in 2018-03-04 Weight 133.2 lbs 2018-03-04 Temperature 99.1 degrees Fahrenheit 2018-03-04 Heart Rate 84 bpm 2018-03-04 Respiratory Rate 18 2018-03-04 BMI 23.59 kg/m2 2018-03-04 Blood pressure systolic 110 mmHg 2018-03-04 Blood pressure diastolic 68 mmHg 2018-03-04 MEDICATIONS Medication Instructions Dosage Frequency Start Date End Date Duration Status ProAir HFA 108 (90 Base) MCG/ACT Inhalation every 6 hrs 2 puffs as needed 6h Sep, 7 days Not-Taking Amoxicillin 500 mg Orally twice a day 2 capsules 12h Feb, Mar, 10 day(s) Active RESULTS Name Result Date Reference Range TEST, URINE (IN HOUSE) 2018-03-04 RESULTS nega Lot # [id number] Control + Exp date 2018 STREP A (IN HOUSE) 2018-03-04 STREP A neg Control + Lot # [id number] Exp date 2017 PROCEDURES Procedure Date Ordered Result Body Site STREP A ASSAY W/OPTIC March 04, 2018 URINE TEST March 04, 2018 INSTRUCTIONS MEDICATIONS ADMINISTERED No Known Medications
--- OUTSIDE RECORDS SUMMARY | 2018-10-06 19:58 | XMS REPORT ---
Author Author SHELLY MAYER [facility] Address [address] [place] [address] Care Team Providers Care Lead Android Developer Name Role Phone BETTIE MAYERTA Unavailable PROBLEMS Type Condition ICD9-CM Code [id number] Code Onset Dates Condition Status SNOMED Code Problem Abnormal vaginal bleeding N93.9 Active 172090998 Problem Missed period N92.6 Active 78274944 Problem MENINGOCOCCAL DX V03.89 Active 99410779 ALLERGIES No Known Allergies ENCOUNTERS Encounter Location Date Diagnosis [facility] [id number] [place] [phone] Jul, Abnormal vaginal bleeding N93.9 [facility] [id number] [place] [phone] Feb, Sore throat J02.9 ; Missed period N92.6 and Tonsil, abscess J36 [facility] [id number] [place] [phone] Dec, Dysuria R30.0 and Acute cystitis with hematuria N30.01 [facility] [id number] [place] [phone] Sep, Bronchitis J40 [facility] [id number] [place] [phone] Dec, [facility] [address] [phone] Jul, [facility] [address] [phone] Jul, IMMUNIZATIONS No Known Immunizations SOCIAL HISTORY Never Assessed REASON FOR VISIT [place] on Sunday and is still bleeding [place], LMP 06/24/18 PLAN OF CARE Activity Details Follow Up if not improving with PCP or reg follow up Reason:vaginal bleeding VITAL SIGNS Height 63 in 2018-07-13 Weight 137.2 lbs 2018-07-13 Temperature 97.3 degrees Fahrenheit 2018-07-13 Heart Rate 80 bpm 2018-07-13 Respiratory Rate 20 2018-07-13 BMI 24.30 kg/m2 2018-07-13 Blood pressure systolic 122 mmHg 2018-07-13 Blood pressure diastolic 56 mmHg 2018-07-13 MEDICATIONS No Known Medications RESULTS Name Result Date Reference Range UA LONG DIP (IN HOUSE) 2018-07-13 Lot # [id number] Exp date 08-09-18 Clarity cloudy Color yellow Odor none GLU negative SONAL negative KET negative SG 1.025 BLO 1+ pH 7.5 Protein negative URO 1.0 NIT negative ELLEN negative Lot # [id number] Exp date Aug 2018 PROCEDURES Procedure Date Ordered Result Body Site URINALYSIS, AUTO, W/O SCOPE Jul 13, 2018 INSTRUCTIONS MEDICATIONS ADMINISTERED No Known Medications MEDICAL (GENERAL) HISTORY Type Description Date Surgical History No know Surgical history
--- OUTSIDE RECORDS SUMMARY | 2018-10-06 19:59 | XMS REPORT ---
Author Author ELVIE FAITH Organization [facility] Address [address] [place] [address] Care Team Providers Care Development Scientist Name Role Phone MARCELL ELVIE Unavailable PROBLEMS Type Condition ICD9-CM Code [id number] Code Onset Dates Condition Status SNOMED Code Problem MENINGOCOCCAL DX V03.89 Active 69166708 ALLERGIES No Known Allergies ENCOUNTERS Encounter Location Date Diagnosis [facility] [id number] [place] [phone] Dec, Dysuria R30.0 and Acute cystitis with hematuria N30.01 [facility] [id number] [place] [phone] Sep, Bronchitis J40 [facility] [id number] [place] [phone] Dec, [facility] [id number] [place] [phone] Jul, [facility] [id number] [place] [phone] Jul, IMMUNIZATIONS No Known Immunizations SOCIAL HISTORY Never Assessed REASON FOR VISIT cough Pt states cough since , states she is having chest pain due to cough, denies fever RAMILA Chappell PLAN OF CARE Activity Details Follow Up prn Reason: VITAL SIGNS Weight 162 lbs 2017-09-11 Temperature 97.8 degrees Fahrenheit 2017-09-11 Heart Rate 76 bpm 2017-09-11 Respiratory Rate 16 2017-09-11 Blood pressure systolic 102 mmHg 2017-09-11 Blood pressure diastolic 68 mmHg 2017-09-11 MEDICATIONS Medication Instructions Dosage Frequency Start Date End Date Duration Status PredniSONE 20 MG Orally Once a day 2 tablet 24h Sep, Sep, 5 days Active ProAir HFA 108 (90 Base) MCG/ACT Inhalation every 6 hrs 2 puffs as needed 6h Sep, 7 days Active RESULTS No Results PROCEDURES Procedure Date Ordered Result Body Site NEBULIZER TREATMENT 2017-09-11 N/A NEB/MDI RX INITIAL Sep 11, 2017 INSTRUCTIONS MEDICATIONS ADMINISTERED No Known Medications
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
--- NOTE | 2018-10-06 20:14 | ED General ---
General Chief Complaint: -Female Stated Complaint: LOWER BACK PAIN;"FAINTED THIS MORNING" Source of Information: Patient Exam Limitations: No Limitations History of Present Illness Date Seen by Provider: Oct 06, 2018 Time Seen by Provider: 20:11 Initial Comments To ER per private vehicle with reports of lower back pain. She states that she has urinary frequency, denies nausea vomiting fevers or chills. She was here for urinary tract infection earlier this month. She also states that she fainted this morning. Immediately prior to the fainting episode she had sensation of dictations and shortness of breath. She is unsure how long she was out, her boyfriend witnessed this, she fell but did not hit her head. She's never done this before. She states that she has family history of syncopal events but she does not know why. It is also not clear to me why she waited the entire day to come in to be evaluated for that symptom Timing/Duration: 1/2 Hour Severity: Moderate Associated Systoms: Cough, Syncope Allergies and Home Medications Allergies Coded Allergies: No Known Drug Allergies (Unverified , 05/04/16) Home Medications Sulfamethoxazole/Trimethoprim 1 Each Tablet, 1 EACH PO BID Prescribed by: JERICA HURTADO on 09/15/18 1039 Patient Home Medication List Home Medication List Reviewed: Yes Review of Systems Review of Systems Constitutional: see HPI EENTM: see HPI Respiratory: see HPI, short of breath Cardiovascular: see HPI, palpitations Genitourinary: see HPI, frequency Musculoskeletal: see HPI, back pain Skin: no symptoms reported Psychiatric/Neurological: No Symptoms Reported Past Sxjzkve-Udnuyx-Svtyjg Hx Patient Social History Alcohol Use: Denies Use Number of Drinks Today: CC Alcohol Beverage of Choice: Cheap Liquor Recreational Drug Use: No Type Used: Cigarettes Recent Foreign Travel: No Contact w/Someone Who Travel: No Recent Hopitalizations: No Immunizations Up To Date Tetanus Booster (TDap): Less than 5yrs Date of Influenza Vaccine: Jul 26, 2016 Seasonal Allergies Seasonal Allergies: No Past Medical History Surgeries: No Respiratory: No Cardiac: No Neurological: No Headaches /Migraines Reproductive Disorders: No Female Reproductive Disorders: Denies Sexually Transmitted Disease: No HIV/AIDS: No Gastrointestinal: No Musculoskeletal: No Endocrine: No Cancer: No Psychosocial: No Integumentary: No Blood Disorders: No Family Medical History Diabetes mellitus MATERNAL GRANDFATHER Hypertension MATERNAL GRANDFATHER MATERNAL GRANDMOTHER Myocardial infarction PATERNAL GRANDFATHER GI Disease Physical Exam Vital Signs Vital Signs - First Documented 10/06/18 20:08 Temp 97.6 Pulse 75 Resp 14 B/P (MAP) 120/76 (91) Pulse Ox 98 O2 Delivery Room Air Capillary Refill : Height, Weight, BMI Height: 5'3.00" Weight: 140lbs. 0oz. 63.325250wj; 23.03 BMI Method:Stated General Appearance: No Apparent Distress, WD/WN Eyes: Bilateral Eye Normal Inspection, Bilateral Eye PERRL, Bilateral Eye EOMI HEENT: PERRL/EOMI Neck: Full Range of Motion, Normal Inspection Respiratory: Lungs Clear, Normal Breath Sounds, No Accessory Muscle Use, No Respiratory Distress Cardiovascular: Regular Rate, Rhythm, Normal Peripheral Pulses Gastrointestinal: Normal Bowel Sounds, Non Tender, Soft Neurologic/Psychiatric: Alert, Oriented x3 Skin: Normal Color, Warm/Dry Progress/Results/Core Measures Suspected Sepsis SIRS Temperature: Pulse: Respiratory Rate: Laboratory Tests 10/06/18 20:15: White Blood Count 5.1 Blood Pressure / Mean: Laboratory Tests 10/06/18 20:15: Creatinine 0.78, Platelet Count 223, Total Bilirubin 0.8 Results/Orders Lab Results Laboratory Tests Test 10/06/18 20:00 10/06/18 20:15 Range/Units Urine Color YELLOW Urine Clarity CLEAR Urine pH 6.5 5-9 Urine Specific Shunk 1.010 L 1.016-1.022 Urine Protein NEGATIVE NEGATIVE Urine Glucose (UA) NEGATIVE NEGATIVE Urine Ketones NEGATIVE NEGATIVE Urine Nitrite NEGATIVE NEGATIVE Urine Bilirubin NEGATIVE NEGATIVE Urine Urobilinogen NORMAL NORMAL MG/DL Urine Leukocyte Esterase 1+ H NEGATIVE Urine RBC (Auto) 2+ H NEGATIVE Urine RBC 0-2 /HPF Urine WBC 2-5 /HPF Urine Squamous Epithelial Cells 10-25 H /HPF Urine Renal Epithelial Cells NONE /HPF Urine Crystals NONE /LPF Urine Bacteria TRACE /HPF Urine Casts NONE /LPF Urine Mucus NEGATIVE /LPF Urine Culture Indicated NO Urine Opiates Screen NEGATIVE NEGATIVE Urine Oxycodone Screen NEGATIVE NEGATIVE Urine Methadone Screen NEGATIVE NEGATIVE Urine Propoxyphene Screen NEGATIVE NEGATIVE Urine Barbiturates Screen NEGATIVE NEGATIVE Ur Tricyclic Antidepressants Screen NEGATIVE NEGATIVE Urine Phencyclidine Screen NEGATIVE NEGATIVE Urine Amphetamines Screen NEGATIVE NEGATIVE Urine Methamphetamines Screen NEGATIVE NEGATIVE Urine Benzodiazepines Screen NEGATIVE NEGATIVE Urine Cocaine Screen NEGATIVE NEGATIVE Urine Cannabinoids Screen NEGATIVE NEGATIVE White Blood Count 5.1 4.3-11.0 10^3/uL Red Blood Count 4.98 4.35-5.85 10^6/uL Hemoglobin 15.2 11.5-16.0 G/DL Hematocrit 45 35-52 % Mean Corpuscular Volume 91 80-99 FL Mean Corpuscular Hemoglobin 31 25-34 PG Mean Corpuscular Hemoglobin Concent 34 32-36 G/DL Red Cell Distribution Width 12.7 10.0-14.5 % Platelet Count 223 130-400 10^3/uL Mean Platelet Volume 10.2 7.4-10.4 FL Neutrophils (%) (Auto) 64 42-75 % Lymphocytes (%) (Auto) 29 12-44 % Monocytes (%) (Auto) 6 0-12 % Eosinophils (%) (Auto) 1 0-10 % Basophils (%) (Auto) 0 0-10 % Neutrophils # (Auto) 3.3 1.8-7.8 X 10^3 Lymphocytes # (Auto) 1.5 1.0-4.0 X 10^3 Monocytes # (Auto) 0.3 0.0-1.0 X 10^3 Eosinophils # (Auto) 0.1 0.0-0.3 10^3/uL Basophils # (Auto) 0.0 0.0-0.1 10^3/uL Sodium Level 140 135-145 MMOL/L Potassium Level 4.1 3.6-5.0 MMOL/L Chloride Level 105 98-107 MMOL/L Carbon Dioxide Level 25 21-32 MMOL/L Anion Gap 10 5-14 MMOL/L Blood Urea Nitrogen 9 7-18 MG/DL Creatinine 0.78 0.60-1.30 MG/DL Estimat Glomerular Filtration Rate > 60 BUN/Creatinine Ratio 12 Glucose Level 118 H 70-105 MG/DL Calcium Level 9.6 8.5-10.1 MG/DL Corrected Calcium 8.5-10.1 MG/DL Total Bilirubin 0.8 0.1-1.0 MG/DL Aspartate Amino Transf (AST/SGOT) 18 5-34 U/L Alanine Aminotransferase (ALT/SGPT) 13 0-55 U/L Alkaline Phosphatase 91 40-136 U/L Total Protein 7.8 6.4-8.2 GM/DL Albumin 4.7 H 3.2-4.5 GM/DL My Orders Orders - MEI GOODEN APRN Cbc With Automated Diff (10/06/18 20:02) Comprehensive Metabolic Panel (10/06/18 20:02) Ua Culture If Indicated (10/06/18 20:02) Ekg Tracing (10/06/18 20:10) Drug Screen Stat (Urine) (10/06/18 20:10) Urine Bedside (10/06/18 20:20) Ibuprofen Tablet (Motrin Tablet) (10/06/18 21:00) Cyclobenzaprine Tablet (Flexeril Tablet) (10/06/18 21:00) Vital Signs/I&O 10/06/18 20:08 Temp 97.6 Pulse 75 Resp 14 B/P (MAP) 120/76 (91) Pulse Ox 98 O2 Delivery Room Air Capillary Refill : Departure Impression Primary Impression: Low back pain Qualified Codes: M54.5 - Low back pain Additional Impression: History of syncope Disposition: HOME, SELF-CARE Condition: Stable Departure-Patient Inst. Decision time for Depature: 20:48 Referrals: MARIANO DE LA VEGA MD (PCP/Family) Primary Care Physician Patient Instructions: Urinary Tract Infection, Adult (DC) Add. Discharge Instructions: 1. Return to ER for any concerns 2. Follow-up with your doctor next week. Call the scheduling department to ask when a Holter monitor would be available. 3. All discharge instructions reviewed with patient and/or family. Voiced understanding. Work/School Note: Work Release Form Date Seen in the Emergency Department: Oct 06, 2018 Return to Work: Oct 08, 2018 MEI GOODEN APRN Oct 06, 2018 20:14
[2018-10-06 20:16] LABS: BILIRUBIN,URINE NEGATIVE (NEGATIVE); CLARITY,URINE CLEAR; COLOR,URINE YELLOW; GLUCOSE, URINE (UA) NEGATIVE (NEGATIVE); KETONES,URINE NEGATIVE (NEGATIVE); LEUKOCYTE ESTERASE ,URINE 1+ (NEGATIVE); NITRITE,URINE NEGATIVE (NEGATIVE); PH,URINE 6.5 (5-9); PROTEIN,URINE NEGATIVE (NEGATIVE); UROBILINOGEN,URINE NORMAL (NORMAL)
[2018-10-06 20:23] LABS: BASOPHILS % (AUTO) 0 % (0-10); EOSINOPHILS # (AUTO) 0.1 10^3/uL (0.0-0.3); EOSINOPHILS % (AUTO) 1 % (0-10); HEMATOCRIT 45 % (35-52); HEMOGLOBIN 15.2 G/DL (11.5-16.0); LYMPHOCYTES # (AUTO) 1.5 X 10^3 (1.0-4.0); LYMPHOCYTES % (AUTO) 29 % (12-44); MEAN CORPUSCULAR HEMOGLOBIN 31 PG (25-34); MEAN CORPUSCULAR HGB CONC 34 G/DL (32-36); MEAN CORPUSCULAR VOLUME 91 FL (80-99); MEAN PLATELET VOLUME 10.2 FL (7.4-10.4); MONOCYTES # (AUTO) 0.3 X 10^3 (0.0-1.0); MONOCYTES % (AUTO) 6 % (0-12); NEUTROPHILS # (AUTO) 3.3 X 10^3 (1.8-7.8); NEUTROPHILS % (AUTO) 64 % (42-75); PLATELET COUNT 223 10^3/uL (130-400); RED CELL DISTRIBUTION WIDTH 12.7 % (10.0-14.5); WHITE BLOOD COUNT 5.1 10^3/uL (4.3-11.0)
[2018-10-06 20:33] LABS: AMPHETAMINE SCREEN, URINE NEGATIVE (NEGATIVE); BARBITURATE SCREEN URINE NEGATIVE (NEGATIVE); BENZODIAZEPINES SCREEN URINE NEGATIVE (NEGATIVE); CANNABINOID SCREEN, URINE NEGATIVE (NEGATIVE); COCAINE SCREEN URINE NEGATIVE (NEGATIVE); METHADONE STAT NEGATIVE (NEGATIVE); METHAMPHETAMINE SCREEN URINE S NEGATIVE (NEGATIVE); OPIATE SCREEN URINE NEGATIVE (NEGATIVE); OXYCODONE STAT NEGATIVE (NEGATIVE); PROPOXYPHENE STAT NEGATIVE (NEGATIVE); TRICYCLIC ANTIDEPRESSANTS SCRE NEGATIVE (NEGATIVE)
[2018-10-06 20:38] LABS: BACTERIA,URINE TRACE /HPF; RBC,URINE 0-2 /HPF
[2018-10-06 20:45] LABS: ALANINE AMINOTRANSFERASE 13 U/L (0-55); ALBUMIN 4.7 GM/DL (3.2-4.5); ALKALINE PHOSPHATASE 91 U/L (40-136); BILIRUBIN,TOTAL 0.8 MG/DL (0.1-1.0); BUN/CREATININE RATIO 12; CALCIUM 9.6 MG/DL (8.5-10.1); CARBON DIOXIDE 25 MMOL/L (21-32); CHLORIDE 105 MMOL/L (98-107); CREATININE SERUM 0.78 MG/DL (0.60-1.30); GFR ESTIMATED > 60; GLUCOSE 118 MG/DL (70-105); POTASSIUM 4.1 MMOL/L (3.6-5.0); SODIUM 140 MMOL/L (135-145); TOTAL PROTEIN 7.8 GM/DL (6.4-8.2)
[2018-10-06] MEDS ORDERED: IBUPROFEN 800 MG (MOTRIN) TAB PO ONE (21:00)
[2018-10-06] MEDS ORDERED: CYCLOBENZAPRINE 10 MG (FLEXERIL) TAB PO SCH (21:00)
[2018-10-06 21:12] VITALS: BP 120/76
== END 2018-10-06 21:14 | disposition home or self-care (01) ==
LOC: EDUNIT# 19:53 → ER 19:55
DX: M54.5 Low back pain (principal); G43.909 Migraine, unspecified, not intractable, without status migrainosus; Z82.49 Family history of ischemic heart disease and other diseases of the circulatory system; Z87.440 Personal history of urinary (tract) infections
CPT/HCPCS: 36415; 80053; 80306; 81000; 84703; 85025; 93005

== ENCOUNTER 2019-01-09 18:39 | Emergency (ER) | payer SELFPAY ==
[~2019-01-09] VITALS: Ht 160 cm; Wt 63.5 kg
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
[2019-01-09 20:20] VITALS: BP 110/65
== END 2019-01-09 20:20 | disposition home or self-care (01) ==
LOC: EDUNIT# 18:39 → ER 18:40
DX: R68.84 Jaw pain (principal); G43.909 Migraine, unspecified, not intractable, without status migrainosus; Z82.49 Family history of ischemic heart disease and other diseases of the circulatory system; Y09 Assault by unspecified means
CPT/HCPCS: 70486

== ENCOUNTER 2019-02-14 19:36 | Emergency (ER) | payer MEDICAID, OTHER ==
[~2019-02-14] VITALS: Ht 160 cm; Wt 63.5 kg
[2019-02-14 19:52] LABS: BILIRUBIN,URINE NEGATIVE (NEGATIVE); COLOR,URINE YELLOW; GLUCOSE, URINE (UA) NEGATIVE (NEGATIVE); KETONES,URINE NEGATIVE (NEGATIVE); LEUKOCYTE ESTERASE ,URINE 1+ (NEGATIVE); NITRITE,URINE NEGATIVE (NEGATIVE); PH,URINE 6.5 (5-9); PROTEIN,URINE NEGATIVE (NEGATIVE); UROBILINOGEN,URINE NORMAL (NORMAL)
[2019-02-14 19:59] LABS: CLARITY,URINE SL CLOUDY
[2019-02-14 20:01] LABS: AMORPHOUS SEDIMENT,UR MOD AMOR URATES /LPF; BACTERIA,URINE TRACE /HPF; WBC,URINE 0-2 /HPF
--- NOTE | 2019-02-14 20:03 | ED General ---
General Chief Complaint: Dizziness/Syncope Stated Complaint: DIZZY,19 WKS PREG Nursing Triage Note: PT STATES DIZZINESS ONSET THIS AM. PT DENIES LOC OR FALL. PT STATES SHE IS 19 WEEKS . PT HISTORY OF DEHYDRATED WITH PREVIOUS . PT STATES SHE HAD JUST WOKE UP WHEN SHE WAS DIZZY. PT DENIES VAGINAL DISCHARGE OR BURNING OR PAIN WITH URINATION. PT IS A1 Nursing Sepsis Screen: No Definite Risk Source of Information: Patient, Family (mom and daughter) Exam Limitations: No Limitations History of Present Illness Date Seen by Provider: Feb 14, 2019 Time Seen by Provider: 19:40 Initial Comments The patient presents to the ER by private conveyance with her mother and daughter and chief complaint that she is dizzy. She is , one miscarriage and 19 weeks 1 day with a EDC of 07/10/19. She follows with Dr. Montez. She says this morning she woke up feeling dizzy like she was going to pass out but also feeling vertiginous symptoms of the room spinning around her. She's never had this before. She says she had a bowel movement yesterday but was very hard and she had to strain. Typically she goes a week or 2 between bowel movements. She says she works at [employer] indoors in a very hot environment and feels like he is going to pass out some days. She does drink Gatorade and water at work but she says she also drinks several 32 ounces of soda a day. She has no past medical history, surgical history or allergies to medications. She does smoke about a pack every week. She denies alcohol or drug use. She denies abdominal pain presently, dysuria, blurry vision or spots. She's had no problems with this patient thus far. Allergies and Home Medications Allergies Coded Allergies: No Known Drug Allergies (Unverified , 05/04/16) Home Medications Sulfamethoxazole/Trimethoprim 1 Each Tablet, 1 EACH PO BID Prescribed by: JERICA HURTADO on 09/15/18 1039 Patient Home Medication List Home Medication List Reviewed: Yes Review of Systems Review of Systems Constitutional: No chills, No diaphoresis EENTM: No ear discharge, No ear pain Respiratory: No cough, No short of breath Cardiovascular: No chest pain, No palpitations Gastrointestinal: No abdominal pain, No constipation, No diarrhea, No nausea, No vomiting Genitourinary: No discharge, No dysuria : Yes Expected Date of Delivery: Jul 10, 2019 Musculoskeletal: No back pain, No joint pain Past Fwkewyo-Hhibcb-Tyjnyb Hx Patient Social History Alcohol Use: Denies Use Number of Drinks Today: CC Alcohol Beverage of Choice: Cheap Liquor Recreational Drug Use: No Smoking Status: Current Someday Smoker Type Used: Cigarettes Recent Foreign Travel: No Contact w/Someone Who Travel: No Recent Infectious Disease Expo: No Recent Hopitalizations: No Physical Abuse: No Sexual Abuse: No Mistreated: No Fear: No Immunizations Up To Date Tetanus Booster (TDap): Less than 5yrs Date of Influenza Vaccine: Jul 26, 2016 Seasonal Allergies Seasonal Allergies: No Past Medical History Surgeries: No Respiratory: No Cardiac: No Neurological: No Headaches /Migraines : Yes Expected Date of Delivery: Jul 10, 2019 Hx : 3 Hx Para: 5 Hx Total # of Abortions (Sp): 1 Reproductive Disorders: No Female Reproductive Disorders: Denies Sexually Transmitted Disease: No HIV/AIDS: No Genitourinary: No Gastrointestinal: No Musculoskeletal: No Endocrine: No HEENT: No Cancer: No Psychosocial: No Integumentary: No Blood Disorders: No Family Medical History Diabetes mellitus MATERNAL GRANDFATHER Hypertension MATERNAL GRANDFATHER MATERNAL GRANDMOTHER Myocardial infarction PATERNAL GRANDFATHER GI Disease Physical Exam Vital Signs Vital Signs - First Documented 02/14/19 19:46 Temp 97.3 Pulse 74 Resp 18 B/P (MAP) 130/60 (83) Pulse Ox 100 O2 Delivery Room Air Capillary Refill : Less Than 3 Seconds Height, Weight, BMI Height: 5'3.00" Weight: 140lbs. 0oz. 63.475325ra; 23.03 BMI Method:Stated General Appearance: No Apparent Distress, WD/WN Eyes: Bilateral Eye Normal Inspection, Bilateral Eye PERRL, Bilateral Eye EOMI HEENT: PERRL/EOMI, Normal ENT Inspection, Pharynx Normal; No Moist Mucous Membranes; TM Abnormal (L) (bilateral otitis media effusion without erythema, induration, bulging or loss of the tympanic membrane landmarks.), TM Abnormal (R) Neck: Full Range of Motion, Normal Inspection, Supple Respiratory: Lungs Clear, Normal Breath Sounds, No Accessory Muscle Use, No Respiratory Distress Cardiovascular: Regular Rate, Rhythm, No Edema, Normal Peripheral Pulses Gastrointestinal: Normal Bowel Sounds, No Organomegaly, Non Tender, Soft, Other (mildly gravid) Neurologic/Psychiatric: Alert, Oriented x3 Skin: Normal Color, Warm/Dry Progress/Results/Core Measures Suspected Sepsis Recent Fever Within 48 Hours: No Infection Criteria Present: None New/Unexplained Altered Menta: No Sepsis Screen: No Definite Risk SIRS Temperature:97.3 Pulse: 74 Respiratory Rate: 18 Blood Pressure 130 /60 Mean: 83 Results/Orders Lab Results Laboratory Tests Test 02/14/19 19:41 Range/Units My Orders Orders - JERICA HURTADO Ua Culture If Indicated (02/14/19 19:37) Vital Signs/I&O 02/14/19 19:46 Temp 97.3 Pulse 74 Resp 18 B/P (MAP) 130/60 (83) Pulse Ox 100 O2 Delivery Room Air Capillary Refill : Less Than 3 Seconds Blood Pressure Mean: 83 Progress Note : Time: 20:02 Progress Note The patient endorses vertiginous symptoms which could be from your middle ear effusion bilateral we'll put her on some topical steroids. She also endorses some Tums and near-syncope which appear to be from her dehydration as evidenced by her constipation and her working in a hot environment. We are going to encourage her to discontinue caffeine and push lots of fluids. We have given her instructions how to monitor her hydration level. Departure Impression Primary Impression: Dizziness Additional Impressions: Mild dehydration Bilateral otitis media with effusion Disposition: 01 HOME, SELF-CARE Condition: Stable Departure-Patient Inst. Decision time for Depature: 20:04 Referrals: JASSI MONTEZ DO (PCP) Primary Care Physician MARIANO DE LA VEGA MD (Family) Primary Care Physician Patient Instructions: Heat Exhaustion and Heat Stroke (DC), Serous Otitis Media Add. Discharge Instructions: Go home and drink lots of fluids. Avoid caffeine. Sports drinks are okay. Discontinue smoking. unit support representative a bottle of Flonase or Rhinocort and put 2 puffs each nostril once a day for the next 2 weeks. You may also use Zyrtec or Claritin one tablet 10 mg daily until you see improvement of your symptoms. Follow-up with primary care as necessary. MiraLAX 17 g or 1 capful in 6-8 ounces of fluid daily every 12-24 hours until you see good results. All discharge instructions reviewed with patient and/or family. Voiced understanding. Scripts Fluticasone Propionate (Flonase Allergy Relief) 9.9 Ml [place].susp 2 SPRAY NS DAILY, #1 EACH 0 Refills 2 SPRAYS PER NOSTRIL DAILY X 2 DAYS THEN 1 SPRAY DAILY Prov: JERICA HURTADO 02/14/19 Polyethylene Glycol 3350 (Miralax) 17 Gm Powd.pack 17 GM PO DAILY PRN PRN for CONSTIPATION-1ST LINE, #1 EACH 0 Refills Prov: JERICA HURTADO 02/14/19 Work/School Note: Work Release Form Date Seen in the Emergency Department: Feb 14, 2019 Return to Work: Feb 17, 2019 JERICA HURTADO Feb 14, 2019 20:03
[2019-02-14] MEDS ORDERED: POLY17PO6 PO (20:08)
[2019-02-14] MEDS ORDERED: FLUT9.9S NS (20:08)
[2019-02-14 20:14] VITALS: BP 130/60
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
== END 2019-02-14 20:14 | disposition home or self-care (01) ==
LOC: EDUNIT# 19:36 → ER 19:37
DX: O26.892 Other specified pregnancy related conditions, second trimester (principal); R42 Dizziness and giddiness; O99.282 Endocrine, nutritional and metabolic diseases complicating pregnancy, second trimester; E86.0 Dehydration; O99.89 Other specified diseases and conditions complicating pregnancy, childbirth and the puerperium; H65.93 Unspecified nonsuppurative otitis media, bilateral; O99.352 Diseases of the nervous system complicating pregnancy, second trimester; G43.909 Migraine, unspecified, not intractable, without status migrainosus; O99.332 Smoking (tobacco) complicating pregnancy, second trimester; F17.210 Nicotine dependence, cigarettes, uncomplicated; Z3A.19 19 weeks gestation of pregnancy; Z82.49 Family history of ischemic heart disease and other diseases of the circulatory system
CPT/HCPCS: 81000; 99283

== ENCOUNTER → 2019-02-25 | Outpatient (CLI) | payer MEDICAID ==
[~2019-02-25] MED LIST changes: +FLUT9.9S NS; +POLY17PO6 PO
--- NOTE | 2019-02-25 12:31 | Diagnostic Imaging Report ---
INDICATION: survey. TECHNIQUE: Multiple real-time grayscale images were obtained over the gravid uterus. COMPARISON: None. FINDINGS: There is a single live fetus in cephalic presentation. heart rate was recorded at 150 beats per minute. Placenta is posterior. Amniotic fluid volume is normal. Cervical length is approximately 3.7 cm. survey demonstrates kidneys, bladder, and stomach to be unremarkable. The brain is unremarkable. There is a four-chamber heart. There is a three-vessel cord with normal insertion. The spine is unremarkable. Biometrical measurements are as follows: Biparietal 4.56 cm, age 19 weeks 6 days. Head circumference 17.64 cm, age 20 weeks 1 days. Abdominal circumference 15.53 cm, age 20 weeks 5 days. Femur length 3.45 cm, age 21 weeks 0 days. Sonographic estimate age: 20 weeks 3 days. Sonographic estimated date of delivery: 07/12/2019. Estimated Weight: 370 gm (+/- 54 gm). LMP percentile: 43%. heart rate: 150 beats per minute. number: 1 of 1. IMPRESSION: Single live IUP at approximately 20 weeks 3 days gestational age. Estimated date of confinement sonographically is 07/12/2019. Dictated by: Dictated on workstation # [id number]
== END ==
LOC: RAD 10:19
PROVIDERS: ATTEND Obstetrics & Gynecology
DX: Z36.89 Encounter for other specified antenatal screening (principal); Z3A.20 20 weeks gestation of pregnancy
CPT/HCPCS: 76805

== ENCOUNTER 2019-05-12 15:49 | Outpatient (CLI) | payer MEDICAID ==
[~2019-05-12] VITALS: Ht 160 cm; Wt 68.0 kg
--- NOTE | 2019-05-12 16:00 | NUR ---
MARK ARCHIBALD presented to unit via ambulatory from home, accompanied by spouse , with c/o CONTRACTIONS. MARK ARCHIBALD weighed, gowned, voided, and to bed. EFHM and TOCO applied, VS taken. MARK ARCHIBALD oriented to bed controls, call light, TV, heat, and A/C controls.
[2019-05-12 16:05] VITALS: BP 118/64
[2019-05-12] MEDS ORDERED: PREN-142 PO (17:10)
--- NOTE | 2019-05-12 17:13 | NUR ---
Called Dr Anthony regarding pt adms with complaints of cramping @ 31.4 weeks and vaginal discharge. Occasional contractions and uterine irritability. Pt rates cramping a 5 and constant back pain a 10. Texting on cell phone upon admission. No grimacing or muscle tensing. Denies sex x 1 week. Vaginal discharge mucous and not liquid. Fetus reactive with many accelerations. 1725 Discharge to home with labor precautions and OB outpatient instructions. Encouraged follow up with Dr Gautam if further issues.
--- NOTE | 2019-05-12 17:33 | NUR ---
Orders placed my mistake under Dr Trujillo instead of Dr Anthony.
--- NOTE | 2019-05-13 22:51 | Physician Query-Final Dx ---
DAIN MILLER 05/13/19 2251: Final Diagnosis Give Final Diagnosis Please give Final Diagnosis Please give Final Diagnosis and add weeks of gestation COLLEEN LAURENT DO 05/14/19 0620: Final Diagnosis Give Final Diagnosis Intrauterine at 31 4/7 weeks Vaginal Discharge 3. Irregular Contractions 4. Back Pain DAIN MILLER May 13, 2019 22:51 COLLEEN LAURENT DO May 14, 2019 06:20
== END 2019-05-12 17:25 | disposition home or self-care (01) ==
LOC: WSo 15:49 → LDRP 15:49 → WSo 17:25
PROVIDERS: ATTEND Obstetrics & Gynecology
DX: O26.893 Other specified pregnancy related conditions, third trimester (principal); N89.8 Other specified noninflammatory disorders of vagina; M54.9 Dorsalgia, unspecified; Z3A.31 31 weeks gestation of pregnancy
CPT/HCPCS: 99213

== ENCOUNTER 2019-06-08 03:09 | Outpatient (CLI) | payer MEDICAID ==
[~2019-06-08] VITALS: Ht 160.2 cm; Wt 70.0 kg
[~2019-06-08 03:09] MED LIST changes: +PREN-142 PO
--- NOTE | 2019-06-08 03:14 | NUR ---
MARK ARCHIBALD , 35/3 presented to unit via from ED, accompanied by SO, with c/o NO MOVEMENT FROM BABY. MARK ARCHIBALD weighed, gowned, voided, and to bed. EFHM and TOCO applied, VS taken. MARK ARCHIBALD oriented to bed controls, call light, TV, heat, and A/C controls.
[2019-06-08 03:31] VITALS: BP 131/76
[2019-06-08 04:11] LABS: BILIRUBIN,URINE NEGATIVE (NEGATIVE); CLARITY,URINE CLEAR; COLOR,URINE YELLOW; GLUCOSE, URINE (UA) NEGATIVE (NEGATIVE); KETONES,URINE 4+ (NEGATIVE); LEUKOCYTE ESTERASE ,URINE 2+ (NEGATIVE); NITRITE,URINE NEGATIVE (NEGATIVE); PH,URINE 7 (5-9); PROTEIN,URINE NEGATIVE (NEGATIVE); UROBILINOGEN,URINE NORMAL (NORMAL)
[2019-06-08 04:30] VITALS: BP 128/68
--- NOTE | 2019-06-08 04:30 | NUR ---
patient reports positive movement.
[2019-06-08 04:38] LABS: BACTERIA,URINE FEW /HPF
--- NOTE | 2019-06-08 04:42 | NUR ---
notified of pt's arrival and complaint. tracing, labs, vital signs reported. new orders received.
[2019-06-08] MEDS ORDERED: CEPHALEXIN 250 MG (KEFLEX) CAP PO ONE ×2 (04:45→04:50)
[2019-06-08] MEDS ORDERED: CEPH-507 PO (04:47)
--- NOTE | 2019-06-08 04:55 | NUR ---
Discharge instructions verbalized. labor precautions given. pt discharged home with family at side. Will follow up with .
--- NOTE | 2019-06-08 05:00 | NUR ---
Keflex 500mg qid x7 days. called into [facility] pharmacy
--- NOTE | 2019-06-09 08:27 | Physician Query-Final Dx ---
MISAEL LAUREANO 06/09/19 0827: Clinic Account Progress/Dx Physician Query: Please give diagnosis Please include # weeks gestation Date of Service Jun 08, 2019 at 03:09 MOHIT SEPULVEDA DO 06/10/19 0809: Clinic Account Progress/Dx DIAGNOSIS: Diagnosis 28 week IUP Uterine cramping MISAEL LAUREANO Jun 09, 2019 08:27 MOHIT SEPULVEDA DO Jun 10, 2019 08:09
== END 2019-06-08 04:55 | disposition home or self-care (01) ==
LOC: WSo 03:09 → LDRP 03:12 → WSo 04:55
PROVIDERS: ATTEND Obstetrics & Gynecology
DX: O36.8130 Decreased fetal movements, third trimester, not applicable or unspecified (principal); Z3A.35 35 weeks gestation of pregnancy
CPT/HCPCS: 81000; 87088; 99213

== ENCOUNTER 2019-06-20 09:46 | Inpatient (IN) | payer MEDICAID ==
[2019-06-20] VITALS (34 sets, daily range): BP systolic 96–187; BP diastolic 51–84
[~2019-06-20] VITALS: Ht 160 cm; Wt 68.1 kg
--- NOTE | 2019-06-20 09:45 | NUR ---
MARK ARCHIBALD presented to unit via from ED, accompanied by friend, with c/o LEAKING. MARK ARCHIBALD weighed, gowned, voided, and to bed. EFHM and TOCO applied, VS taken. MARK ARCHIBALD oriented to bed controls, call light, TV, heat, and A/C controls.
[~2019-06-20 09:46] MED LIST changes: +CEPH-507 PO
--- NOTE | 2019-06-20 10:02 | NUR ---
dr magdaleno on floor, reviewed patient c/o, initial assessment, nitrazine, SVE results. continuing to monitor expectantly.
[2019-06-20 10:11] LABS: BILIRUBIN,URINE NEGATIVE (NEGATIVE); CLARITY,URINE CLEAR; COLOR,URINE AMBER; GLUCOSE, URINE (UA) NEGATIVE (NEGATIVE); KETONES,URINE NEGATIVE (NEGATIVE); LEUKOCYTE ESTERASE ,URINE 2+ (NEGATIVE); NITRITE,URINE NEGATIVE (NEGATIVE); PH,URINE 7 (5-9); PROTEIN,URINE 2+ (NEGATIVE); UROBILINOGEN,URINE 1 MG/DL (NORMAL)
[2019-06-20 10:19] LABS: BACTERIA,URINE FEW /HPF; RBC,URINE RARE /HPF
[2019-06-20] MEDS ORDERED: OXYTOCIN/NORMAL SALINE 500 ML IV SCH ×2 (10:24→16:45)
[2019-06-20] MEDS ORDERED: AMPICILLIN FOR IV USE 2,000 MG in WATER (STERILE) FOR INJECTION 14.8 ML IV SCH (10:24)
[2019-06-20] MEDS ORDERED: D5 LR IV SOLUTION 1,000 ML IV SCH (10:24)
[2019-06-20] MEDS ORDERED: MINERAL OIL CONCENTRATE 99.9% 15 ML UDC TOP PRN (10:30)
[2019-06-20 11:21] LABS: BASOPHILS % (AUTO) 0 % (0-10); EOSINOPHILS % (AUTO) 0 % (0-10); HEMATOCRIT 36 % (35-52); HEMOGLOBIN 11.5 G/DL (11.5-16.0); LYMPHOCYTES # (AUTO) 1.6 X 10^3 (1.0-4.0); LYMPHOCYTES % (AUTO) 20 % (12-44); MEAN CORPUSCULAR HEMOGLOBIN 28 PG (25-34); MEAN CORPUSCULAR HGB CONC 32 G/DL (32-36); MEAN CORPUSCULAR VOLUME 86 FL (80-99); MEAN PLATELET VOLUME 10.6 FL (7.4-10.4); MONOCYTES # (AUTO) 0.6 X 10^3 (0.0-1.0); MONOCYTES % (AUTO) 7 % (0-12); NEUTROPHILS # (AUTO) 5.9 X 10^3 (1.8-7.8); NEUTROPHILS % (AUTO) 73 % (42-75); PLATELET COUNT 190 10^3/uL (130-400); WHITE BLOOD COUNT 8.1 10^3/uL (4.3-11.0)
[2019-06-20] MEDS ORDERED: SUFENTA 0.6MCG/ML BUPIVA 0.125 100 ML ONE (13:11)
[2019-06-20] MEDS ORDERED: fentaNYL INJECTION 100 MCG/2 ML AMP ONE (13:19)
[2019-06-20] MEDS ORDERED: BUPIVACAINE 0.25% 30 ML (SENSORCAINE) VIAL ONE (13:19)
[2019-06-20] MEDS ORDERED: LACTATED RINGERS 1,000 ML IV ONE (13:47)
--- NOTE | 2019-06-20 13:55 | NUR ---
dr magdaleno notified of patient contraction/fhr pattern, pitocin infusion, last cervical exam. no new orders at this time.
[2019-06-20] MEDS ORDERED: diphenhydrAMINE 50 MG/ML INJ (BENADRYL) IV PRN (14:00)
[2019-06-20] MEDS ORDERED: ONDANSETRON 4 MG/2 ML (SDV) Z0FRAN IV PRN (14:00)
[2019-06-20] MEDS ORDERED: NALOXONE 0.4 MG/ML 1 ML (NARCAN) VIAL IV PRN (14:00)
[2019-06-20] MEDS ORDERED: CATHETER FLUSH 10 ML SYR IV PRN (14:00)
[2019-06-20] MEDS ORDERED: CATHETER FLUSH 10 ML SYR IV SCH ×2 (14:00→22:00)
[2019-06-20] MEDS ORDERED: EPIDURAL (SUFENTA 0.6MCG/ML BUPIVA 0.125%) 100 ML BAG EPI SCH (14:00)
[2019-06-20] MEDS ORDERED: AMPICILLIN FOR IV USE 1,000 MG in WATER (STERILE) FOR INJECTION 7.4 ML IV SCH (14:30)
[2019-06-20] MEDS ORDERED: WITCH HAZEL(TUCKS) 40 EA JAR TOP PRN (16:45)
[2019-06-20] MEDS ORDERED: TETANUS,DIPTH,PERTUSS P/F (BOOSTRIX) 0.5 ML VIAL IM ONE (16:45)
[2019-06-20] MEDS ORDERED: MEASLES,MUMPS,RUBELLA 1 EA INJ SQ ONE (16:45)
[2019-06-20] MEDS ORDERED: BENZOCAINE/MENTHOL (DERMOPLAST) 56 ML CAN TP PRN (16:45)
--- NOTE | 2019-06-20 16:45 | History & Physical-OB ---
OB - Chief Complaint & HPI Date/Time Date of Admission: Date of Admission: Jun 20, 2019 at 10:35 Date seen by a Provider: Jun 20, 2019 Time Seen by a Provider: 10:40 Chief Complaint/History OB-Reason for Admission/Chief: Rupture of Membranes Hx : 5 Hx Para: 3 Expected Date of Delivery: Jul 11, 2019 Gestational Age in Weeks: 37 Gestational Age in Days: 0 Admission Nurse Assessment Rev: Yes History of Labs GBS unknown Allergies and Home Medications Allergies Coded Allergies: No Known Drug Allergies (Unverified , 05/04/16) Home Medications Cephalexin 500 Mg Capsule, 500 MG PO QID Prescribed by: LITO BYRD on 06/08/19 0447 Vit No.124/Iron/FA 1 Each Tablet, 1 EACH PO DAILY, (Reported) Patient Home Medication List Home Medication List Reviewed: Yes OB - History Hx of Present Care: Yes Obstetrical History Hx : 5 Hx Para: 3 Hx Termination: No Hx Total # of Abortions (Spona: 1 Hx Multiple Gestation: No Hx Stillbirth: No Hx Complication: No Hx Induced Hypertens: No Hx Maternal Gestational Diabet: No Delivery History Hx Dystocia: No Hx Large For Gestational Age I: No Hx Small for Gestational Age I: No Hx Section: No Hx Vaginal Delivery Post C-Sec: No Hx Blood Disorders: No Adverse Rxn to Tranfusion: No Patient Past Medical History [place] Social History/Family History HIV/AIDS: No Recent Infectious Disease Expo: No Sexually Transmitted Disease: No Alcohol Use: Denies Use Recreational Drug Use: No 2nd Hand Smoke Exposure: No Immunizations Hepatitis A: Yes Hepatitis B: Yes Tetanus Booster (TDap): Less than 5yrs Date of Influenza Vaccine: Jul 26, 2016 OB - Admission Exam Physical Exam Vitals: Vital Signs 06/20/19 06/20/19 09:55 09:57 Temp 36.0 Pulse 76 Resp 20 B/P (MAP) 124/81 (95) Pulse Ox 98 O2 Delivery Room Air Labs Laboratory Tests Test 06/20/19 09:55 06/20/19 10:55 Range/Units Urine Color MADHURI H Urine Clarity CLEAR Urine pH 7 5-9 Urine Specific [place] 1.010 L 1.016-1.022 Urine Protein 2+ H NEGATIVE Urine Glucose (UA) NEGATIVE NEGATIVE Urine Ketones NEGATIVE NEGATIVE Urine Nitrite NEGATIVE NEGATIVE Urine Bilirubin NEGATIVE NEGATIVE Urine Urobilinogen 1 NORMAL MG/DL Urine Leukocyte Esterase 2+ H NEGATIVE Urine RBC (Auto) NEGATIVE NEGATIVE Urine RBC RARE /HPF Urine WBC 10-25 H /HPF Urine Squamous Epithelial Cells 5-10 /HPF Urine Crystals NONE /LPF Urine Bacteria FEW H /HPF Urine Casts NONE /LPF Urine Mucus SMALL H /LPF Urine Culture Indicated YES White Blood Count 8.1 4.3-11.0 10^3/uL Red Blood Count 4.18 L 4.35-5.85 10^6/uL Hemoglobin 11.5 11.5-16.0 G/DL Hematocrit 36 35-52 % Mean Corpuscular Volume 86 80-99 FL Mean Corpuscular Hemoglobin 28 25-34 PG Mean Corpuscular Hemoglobin Concent 32 32-36 G/DL Red Cell Distribution Width 13.0 10.0-14.5 % Platelet Count 190 130-400 10^3/uL Mean Platelet Volume 10.6 H 7.4-10.4 FL Neutrophils (%) (Auto) 73 42-75 % Lymphocytes (%) (Auto) 20 12-44 % Monocytes (%) (Auto) 7 0-12 % Eosinophils (%) (Auto) 0 0-10 % Basophils (%) (Auto) 0 0-10 % Neutrophils # (Auto) 5.9 1.8-7.8 X 10^3 Lymphocytes # (Auto) 1.6 1.0-4.0 X 10^3 Monocytes # (Auto) 0.6 0.0-1.0 X 10^3 Eosinophils # (Auto) 0.0 0.0-0.3 10^3/uL Basophils # (Auto) 0.0 0.0-0.1 10^3/uL JASSI MONTEZ DO Jun 20, 2019 16:45
--- NOTE | 2019-06-20 16:49 | OB Labor & Delivery Record ---
Vag Delivery Note Vag Delivery Note Date of Delivery: 06/20/19 Preoperative Diagnosis: Margy Cody is a 24 /Para 5 / 3, Gestational Age 37 weeks with ROM, GBS unknown (was on antibiotics/Keflex for Uti until this morning) Postoperative Diagnosis: Same Surgeon: JASSI MONTEZ Anesthesia: epidural Delivery Type: vaginal Findings: Viable female infant, apgars 9/9, weight 7#6ounces Lacerations: none Intact placenta with 3 vessel cord. No nuchal cord, body cord or shoulder dystocia Estimated Blood Loss: 150 ml Complications: None Condition: Stable Description of Procedure: The patient is a 24 year old female who presented with ROM. She was admitted and informed consent was obtained. Her labor course was remarkable for GBS prophylaxis and augmentation with pitocin. She progressed to complete dilatation and began to push. She was then set up for delivery. The 's head was delivered atraumatically in the MATHIEU position. The shoulders and remainder of the 's body were then delivered without difficulty. Upon delivery, the head was held below the level of the perineum and the mouth and nares were bulb suctioned. The cord was doubly clamped and cut and the was handed off to the pediatric staff. An intact placenta with 3-vessel cord delivered via [place] and there was found to be minimal bleeding.~ Vigorous fundal massage was performed and the fundus was found to be firm. IV oxytocin was given. Examination of the vagina and perineum revealed no laceration. Following the repair, sponge, instrument and needle counts were correct. Mom and baby were both in stable condition in the labor suite. Vitals - Labs Vital Signs - I&O Vital Signs Date Time Temp Pulse Resp B/P (MAP) Pulse Ox O2 Delivery O2 Flow Rate FiO2 06/20/19 09:57 36.0 76 20 Room Air 06/20/19 09:55 36.0 76 20 98 Room Air 06/20/19 09:55 36.0 76 20 124/81 (95) Room Air Labs Laboratory Tests 06/20/19 09:55: Urine Color AMBERH, Urine Clarity CLEAR, Urine pH 7, Urine Specific [place] 1.010L, Urine Protein 2+H, Urine Glucose (UA) NEGATIVE, Urine Ketones NEGATIVE, Urine Nitrite NEGATIVE, Urine Bilirubin NEGATIVE, Urine Urobilinogen 1, Urine Leukocyte Esterase 2+H, Urine RBC (Auto) NEGATIVE, Urine RBC RARE, Urine WBC 10- 25H, Urine Squamous Epithelial Cells 5-10, Urine Crystals NONE, Urine Bacteria FEWH, Urine Casts NONE, Urine Mucus SMALLH, Urine Culture Indicated YES 06/20/19 10:55: White Blood Count 8.1, Red Blood Count 4.18L, Hemoglobin 11.5, Hematocrit 36, Mean Corpuscular Volume 86, Mean Corpuscular Hemoglobin 28, Mean Corpuscular Hemoglobin Concent 32, Red Cell Distribution Width 13.0, Platelet Count 190, Mean Platelet Volume 10.6H, Neutrophils (%) (Auto) 73, Lymphocytes (%) (Auto) 20, Monocytes (%) (Auto) 7, Eosinophils (%) (Auto) 0, Basophils (%) (Auto) 0, Neutrophils # (Auto) 5.9, Lymphocytes # (Auto) 1.6, Monocytes # (Auto) 0.6, Eosinophils # (Auto) 0.0, Basophils # (Auto) 0.0 JASSI MONTEZ DO Jun 20, 2019 16:49
--- NOTE | 2019-06-20 17:00 | NUR ---
ffu/1 sitting up in bed, ordering dinner from room service. denies need. pitocin infusing as ordered. no s/s of distress noted.
[2019-06-20] MEDS: IBUPROFEN 600 MG (MOTRIN) TAB PO SCH (17:05)
[2019-06-20] MEDS: ACETAMINOPHEN 500 MG TAB (TYLENOL) PO SCH (22:34)
[2019-06-21 00:40] VITALS: BP 86/47
[2019-06-21] MEDS: IBUPROFEN 600 MG (MOTRIN) TAB PO SCH ×4 (00:49→20:42)
[2019-06-21] MEDS: DOCUSATE SODIUM 100 MG (COLACE) CAP PO SCH ×3 (00:49→20:42)
[2019-06-21 06:29] VITALS: BP 105/66
[2019-06-21 07:22] LABS: BASOPHILS % (AUTO) 0 % (0-10); EOSINOPHILS # (AUTO) 0.1 10^3/uL (0.0-0.3); EOSINOPHILS % (AUTO) 1 % (0-10); HEMATOCRIT 31 % (35-52); HEMOGLOBIN 10.2 G/DL (11.5-16.0); LYMPHOCYTES # (AUTO) 2.1 X 10^3 (1.0-4.0); LYMPHOCYTES % (AUTO) 28 % (12-44); MEAN CORPUSCULAR HEMOGLOBIN 28 PG (25-34); MEAN CORPUSCULAR HGB CONC 33 G/DL (32-36); MEAN CORPUSCULAR VOLUME 86 FL (80-99); MEAN PLATELET VOLUME 10.6 FL (7.4-10.4); MONOCYTES # (AUTO) 0.6 X 10^3 (0.0-1.0); MONOCYTES % (AUTO) 8 % (0-12); NEUTROPHILS # (AUTO) 4.9 X 10^3 (1.8-7.8); NEUTROPHILS % (AUTO) 64 % (42-75); PLATELET COUNT 184 10^3/uL (130-400); RED CELL DISTRIBUTION WIDTH 13.3 % (10.0-14.5); WHITE BLOOD COUNT 7.7 10^3/uL (4.3-11.0)
--- NOTE | 2019-06-21 08:12 | Postpartum Progress Note ---
Note Note Day # 1 s/p Subjective: Patient is without complaints. Ambulating, voiding. Tolerating a regular diet w ithout nausea or vomiting. Normal lochia. Pain is well controlled with oral pain medications. breast feeding. Objective: 06/21/19 06/21/19 00:40 06:29 Temp 36.7 37.0 Pulse 64 63 Resp 20 20 B/P (MAP) 86/47 (60) 105/66 (79) Pulse Ox 98 99 O2 Delivery Room Air Room Air Laboratory Tests Test 06/20/19 09:55 06/20/19 10:55 06/21/19 06:40 Range/Units Urine Color MADHURI H Urine Clarity CLEAR Urine pH 7 5-9 Urine Specific [place] 1.010 L 1.016-1.022 Urine Protein 2+ H NEGATIVE Urine Glucose (UA) NEGATIVE NEGATIVE Urine Ketones NEGATIVE NEGATIVE Urine Nitrite NEGATIVE NEGATIVE Urine Bilirubin NEGATIVE NEGATIVE Urine Urobilinogen 1 NORMAL MG/DL Urine Leukocyte Esterase 2+ H NEGATIVE Urine RBC (Auto) NEGATIVE NEGATIVE Urine RBC RARE /HPF Urine WBC 10-25 H /HPF Urine Squamous Epithelial Cells 5-10 /HPF Urine Crystals NONE /LPF Urine Bacteria FEW H /HPF Urine Casts NONE /LPF Urine Mucus SMALL H /LPF Urine Culture Indicated YES White Blood Count 8.1 7.7 4.3-11.0 10^3/uL Red Blood Count 4.18 L 3.63 L 4.35-5.85 10^6/uL Hemoglobin 11.5 10.2 L 11.5-16.0 G/DL Hematocrit 36 31 L 35-52 % Mean Corpuscular Volume 86 86 80-99 FL Mean Corpuscular Hemoglobin 28 28 25-34 PG Mean Corpuscular Hemoglobin Concent 32 33 32-36 G/DL Red Cell Distribution Width 13.0 13.3 10.0-14.5 % Platelet Count 190 184 130-400 10^3/uL Mean Platelet Volume 10.6 H 10.6 H 7.4-10.4 FL Neutrophils (%) (Auto) 73 64 42-75 % Lymphocytes (%) (Auto) 20 28 12-44 % Monocytes (%) (Auto) 7 8 0-12 % Eosinophils (%) (Auto) 0 1 0-10 % Basophils (%) (Auto) 0 0 0-10 % Neutrophils # (Auto) 5.9 4.9 1.8-7.8 X 10^3 Lymphocytes # (Auto) 1.6 2.1 1.0-4.0 X 10^3 Monocytes # (Auto) 0.6 0.6 0.0-1.0 X 10^3 Eosinophils # (Auto) 0.0 0.1 0.0-0.3 10^3/uL Basophils # (Auto) 0.0 0.0 0.0-0.1 10^3/uL Physical Exam: General - Alert and oriented, no apparent distress Abdomen - Soft, appropriately tender to palpation, non-distended, fundus firm at umbilicus Extremities - no edema, negative Syed's bilaterally Assessment: 1. post- day # 1, status post spontaneous vaginal delivery. Recovering well, hemodynamically stable Plan: Routine care. Encourage breast feeding. Encourage ambulation. Ferrous sulfate supplementation. Plan for discharge Vitals - Labs Vital Signs - I&O Vital Signs Date Time Temp Pulse Resp B/P (MAP) Pulse Ox O2 Delivery O2 Flow Rate FiO2 06/21/19 06:29 37.0 63 20 105/66 (79) 99 Room Air 06/21/19 00:40 36.7 64 20 86/47 (60) 98 Room Air 06/20/19 20:02 79 20 112/66 (81) 98 Room Air 06/20/19 18:30 37.1 78 20 118/65 (82) Room Air 06/20/19 17:28 37.0 76 20 124/65 (84) Room Air 06/20/19 17:13 37.0 76 20 123/62 (82) Room Air 06/20/19 17:00 36.4 96 20 131/72 (91) Room Air 06/20/19 16:47 36.4 94 20 133/69 (90) Room Air 06/20/19 16:30 37.1 141 18 187/74 (111) 94 Room Air 06/20/19 16:15 92 18 130/70 (90) 94 Room Air 06/20/19 16:00 75 18 131/69 (89) 94 Room Air 06/20/19 15:35 65 18 108/56 (73) 100 Room Air 06/20/19 15:20 63 18 107/60 (76) 100 Room Air 06/20/19 15:10 64 18 105/59 (74) 100 Room Air 06/20/19 14:55 36.4 61 18 105/57 (73) 100 Room Air 06/20/19 14:35 68 18 105/54 (71) 100 Room Air 06/20/19 14:20 61 18 96/51 (66) 100 Room Air 06/20/19 14:15 64 18 101/55 (70) 100 Room Air 06/20/19 14:10 63 18 108/60 (76) 100 Room Air 06/20/19 14:05 80 18 111/59 (76) 100 Room Air 06/20/19 14:00 77 18 105/58 (74) 100 Room Air 06/20/19 13:56 73 18 106/56 (73) 100 Room Air 06/20/19 13:53 97 18 113/64 (80) 99 Room Air 06/20/19 13:50 69 18 108/59 (75) 99 Room Air 06/20/19 13:45 112 18 131/71 (91) 100 Room Air 06/20/19 13:40 102 18 137/65 (89) 99 Room Air 06/20/19 13:35 75 18 128/69 (88) 100 Room Air 06/20/19 13:32 91 18 142/65 (90) 100 Room Air 06/20/19 13:30 95 20 150/76 (100) 100 Room Air 06/20/19 13:05 66 20 116/66 (83) Room Air 06/20/19 12:50 75 20 116/69 (85) Room Air 06/20/19 12:35 71 20 150/74 (99) Room Air 06/20/19 12:05 67 20 122/75 (91) Room Air 06/20/19 11:50 74 20 126/84 (98) Room Air 06/20/19 09:57 36.0 76 20 Room Air 06/20/19 09:55 36.0 76 20 98 Room Air 06/20/19 09:55 36.0 76 20 124/81 (95) Room Air Labs Laboratory Tests 06/20/19 09:55: Urine Color AMBERH, Urine Clarity CLEAR, Urine pH 7, Urine Specific [place] 1.010L, Urine Protein 2+H, Urine Glucose (UA) NEGATIVE, Urine Ketones NEGATIVE, Urine Nitrite NEGATIVE, Urine Bilirubin NEGATIVE, Urine Urobilinogen 1, Urine Leukocyte Esterase 2+H, Urine RBC (Auto) NEGATIVE, Urine RBC RARE, Urine WBC 10- 25H, Urine Squamous Epithelial Cells 5-10, Urine Crystals NONE, Urine Bacteria FEWH, Urine Casts NONE, Urine Mucus SMALLH, Urine Culture Indicated YES 06/20/19 10:55: White Blood Count 8.1, Red Blood Count 4.18L, Hemoglobin 11.5, Hematocrit 36, Mean Corpuscular Volume 86, Mean Corpuscular Hemoglobin 28, Mean Corpuscular Hemoglobin Concent 32, Red Cell Distribution Width 13.0, Platelet Count 190, Mean Platelet Volume 10.6H, Neutrophils (%) (Auto) 73, Lymphocytes (%) (Auto) 20, Monocytes (%) (Auto) 7, Eosinophils (%) (Auto) 0, Basophils (%) (Auto) 0, Neutrophils # (Auto) 5.9, Lymphocytes # (Auto) 1.6, Monocytes # (Auto) 0.6, Eosinophils # (Auto) 0.0, Basophils # (Auto) 0.0 06/21/19 06:40: White Blood Count 7.7, Red Blood Count 3.63L, Hemoglobin 10.2L, Hematocrit 31L, Mean Corpuscular Volume 86, Mean Corpuscular Hemoglobin 28, Mean Corpuscular Hemoglobin Concent 33, Red Cell Distribution Width 13.3, Platelet Count 184, Mean Platelet Volume 10.6H, Neutrophils (%) (Auto) 64, Lymphocytes (%) (Auto) 28, Monocytes (%) (Auto) 8, Eosinophils (%) (Auto) 1, Basophils (%) (Auto) 0, Neutrophils # (Auto) 4.9, Lymphocytes # (Auto) 2.1, Monocytes # (Auto) 0.6, Eosinophils # (Auto) 0.1, Basophils # (Auto) 0.0 JASSI MONTEZ DO Jun 21, 2019 08:12
[2019-06-21] MEDS ORDERED: FERR325T18 PO (09:01)
[2019-06-21] MEDS ORDERED: ACET-77 PO (09:01)
[2019-06-21] MEDS ORDERED: IBUP-844 PO (09:01)
--- NOTE | 2019-06-21 09:02 | Discharge Inst-Women's Service ---
Discharge Inst-Women's Serv Depart Medication/Instructions New, Converted or Re-Newed RX: Transmitted to Pharmacy Final Diagnosis ROM 37 week gestation GBS unknown (treated as 37 weeks/ was on Keflex at admission) Problems Reviewed?: Yes Consults/Follow Up Additional Follow Up: Yes (6 week pp exam) Activity Activity: Activity as Tolerated Driving Instructions: You May Drive NO SMOKING: NO SMOKING Nothing Inside Vagina: No Douching, No [place], No Tampons Diet Discharge Diet: No Restrictions Symptoms to Report to : Bleeding Excessive, Pain Increased, Fever Over 101 Degrees F, Vaginal Bleeding Increase, Cramps in Feet or Legs, Vaginal Discharge Foul For Any Problems or Questions: Contact Your Physician Skin/Wound Care Bathing Instructions: JASIS Brcok DO Jun 21, 2019 09:02
[2019-06-21 10:38] VITALS: BP 118/73
--- NOTE | 2019-06-21 10:38 | NUR ---
AM shift assessment completed and vital signs obtained, see interventions. Plan of care reviewed, patient verbalizes understanding and denies any current questions or concerns at this time. Scheduled Tylenol, Iron, PNV, and Colace PO given at this time. Patient c/o irritation on her back. Appears to have tape burn from epidural dressing.
[2019-06-21] MEDS: PRENATAL VITAMIN 1 EA TAB PO SCH (10:42)
[2019-06-21] MEDS: FERROUS SULF 325 MG (IRON) TAB PO SCH (10:42)
[2019-06-21] MEDS: ACETAMINOPHEN 500 MG TAB (TYLENOL) PO SCH ×2 (10:43→20:42)
--- NOTE | 2019-06-21 13:31 | NUR ---
motrin 600 g p.o per routine order. pt resting in bed with in arms. pt denies pain. appropriate bonding.
[2019-06-21 15:00] VITALS: BP 140/76
[2019-06-21] MEDS ORDERED: HYDROCORTISONE 2.5% CREAM (ANUSOL-HC) 30 GM TOP PRN (16:15)
--- NOTE | 2019-06-21 20:58 | NUR ---
pt resting in bed holding nb. assessment completed. pt denies any needs at this time. will continue to monitor.
[2019-06-21 21:07] VITALS: BP 125/72
[2019-06-22] MEDS: IBUPROFEN 600 MG (MOTRIN) TAB PO SCH ×2 (02:48→09:06)
[2019-06-22 02:50] VITALS: BP 115/62
[2019-06-22 08:25] VITALS: BP 126/76
[2019-06-22] MEDS: DOCUSATE SODIUM 100 MG (COLACE) CAP PO SCH (09:06)
[2019-06-22] MEDS: FERROUS SULF 325 MG (IRON) TAB PO SCH (09:06)
[2019-06-22] MEDS: ACETAMINOPHEN 500 MG TAB (TYLENOL) PO SCH (09:07)
[2019-06-22] MEDS: PRENATAL VITAMIN 1 EA TAB PO SCH (09:07)
--- NOTE | 2019-06-22 09:22 | Postpartum Progress Note ---
Note Note Day # 2 s/p . stayed bc baby was not discharged. Ready to go home Subjective: Patient is without complaints. Ambulating, voiding. Tolerating a regular diet without nausea or vomiting. Normal lochia. Pain is well controlled with oral pain medications. Objective: Vital Sign - Last 24 Hours 06/21/19 06/21/19 06/21/19 06/22/19 10:38 15:00 21:07 02:50 Temp 36.6 36.9 36.3 36.3 Pulse 85 77 72 60 Resp 16 20 18 18 B/P (MAP) 118/73 (88) 140/76 (97) 125/72 (89) 115/62 (79) Pulse Ox 97 99 O2 Delivery Room Air Physical Exam: General - Alert and oriented, no apparent distress Abdomen - Soft, appropriately tender to palpation, non-distended, fundus firm at umbilicus Extremities - no edema, negative Syed's bilaterally Assessment: 1. post- day # 2, status post spontaneous vaginal delivery. Recovering well, hemodynamically stable Plan: Routine care. Encourage breast feeding. Encourage ambulation. Ferrous sulfate supplementation. Plan for discharge today Vitals - Labs Vital Signs - I&O Vital Signs Date Time Temp Pulse Resp B/P (MAP) Pulse Ox O2 Delivery O2 Flow Rate FiO2 06/22/19 02:50 36.3 60 18 115/62 (79) 06/21/19 21:07 36.3 72 18 125/72 (89) 06/21/19 15:00 36.9 77 20 140/76 (97) 99 06/21/19 10:38 36.6 85 16 118/73 (88) 97 Room Air Labs Microbiology 06/20/19 Urine Culture - Final, Complete NO GROWTH JASSI MONTEZ DO Jun 22, 2019 09:22
--- NOTE | 2019-06-22 11:37 | Anesthesia-Regional Post-Op ---
Regional Patient Condition Mental Status: Alert, Oriented x3 Circulation: Same as Pre-Op Headache: Absent Sensation: Full Recovery Motor Block: Absent Post Op Complications Complications None Follow Up Care/Instructions Patient Instructions None needed. Anesthesia/Patient Condition Patient is doing well, no complaints, stable vital signs, no apparent adverse anesthesia problems. No complications reported per nursing. SEFERINO ASHLEY CRNA Jun 22, 2019 11:37
== END 2019-06-22 14:05 | disposition home or self-care (01) | DRG 807 ==
LOC: WSo 09:46 → LDRP 09:47 → WSo 10:30 → LDRP 10:35
PROVIDERS: ADMIT Obstetrics & Gynecology; ATTEND Obstetrics & Gynecology
PROC: 10E0XZZ Delivery of Products of Conception, External Approach (ICD-10-PCS; principal; 2019-06-20)
DX: O99.62 Diseases of the digestive system complicating childbirth (principal); Z37.0 Single live birth; K21.9 Gastro-esophageal reflux disease without esophagitis; Z3A.37 37 weeks gestation of pregnancy; Z28.82 Immunization not carried out because of caregiver refusal
CPT/HCPCS: 36415; 81000; 85025; 86850; 86900; 86901; 87088

== ENCOUNTER 2020-07-22 11:30 | Emergency (ER) | payer MEDICAID ==
[~2020-07-22] VITALS: Ht 160 cm; Wt 71.2 kg
[~2020-07-22 11:30] MED LIST changes: +ACET-78 PO; +FERR325T18 PO; +IBUP-844 PO
[2020-07-22] MEDS ORDERED: ACETAMINOPHEN 500 MG TAB (TYLENOL) PO ONE (12:00)
[2020-07-22 12:01] LABS: BILIRUBIN,URINE NEGATIVE (NEGATIVE); CLARITY,URINE CLEAR; COLOR,URINE YELLOW; GLUCOSE, URINE (UA) NEGATIVE (NEGATIVE); KETONES,URINE NEGATIVE (NEGATIVE); LEUKOCYTE ESTERASE ,URINE TRACE (NEGATIVE); NITRITE,URINE NEGATIVE (NEGATIVE); PROTEIN,URINE NEGATIVE (NEGATIVE)
[2020-07-22 12:09] LABS: BACTERIA,URINE NEGATIVE /HPF; RBC,URINE RARE /HPF; WBC,URINE RARE /HPF
--- NOTE | 2020-07-22 12:09 | ED Back Pain ---
General Chief Complaint: Back Problems Stated Complaint: LOWER BACK PAIN Source of Information: Patient Exam Limitations: No Limitations History of Present Illness Date Seen by Provider: Jul 22, 2020 Time Seen by Provider: 11:45 Initial Comments The patient presents ER by private conveyance from home with chief complaint of the past week of some low back pain bilaterally as well as pelvic cramping and bleeding less than a period but more than spotting. She says she might be her last missed her period was sometime in early May putting her around 10 weeks. She is a with one elective and one spontaneous . She is followed by Dr. Hoyos the past her OB but has not established care with anybody as she has not checked a test at home. She does not take any medications routinely. She is not on control. She does not take any vitamins. She does not have any known medical or surgical history. No trauma. She's having no saddle anesthesia, loss control of bowel or bladder, weakness numbness falls She says couple days ago she went to [facility] and was examined but did not have any labs, imaging or urine done at that time. Allergies and Home Medications Allergies Coded Allergies: No Known Drug Allergies (Unverified , 05/04/16) Home Medications Acetaminophen 500 Mg Tablet, 1,000 MG PO Q8HR Prescribed by: JASSI MONTEZ on 06/21/19900 Ferrous Sulfate 325 Mg Tablet, 325 MG PO DAILY@0800 Prescribed by: JASSI MONTEZ on 06/21/19900 Ibuprofen 600 Mg Tablet, 600 MG PO Q6HR Prescribed by: JASSI MONTEZ on 06/21/19900 Vit No.124/Iron/FA 1 Each Tablet, 1 EACH PO DAILY, (Reported) Patient Home Medication List Home Medication List Reviewed: Yes Review of Systems Constitutional: No chills, No diaphoresis EENTM: No ear discharge, No ear pain Respiratory: No cough, No short of breath Cardiovascular: No Hx of Intervention, No palpitations Gastrointestinal: see HPI, abdominal pain Genitourinary: see HPI; No discharge : Yes Musculoskeletal: see HPI, back pain; No joint pain All Other Systems Reviewed Negative Unless Noted: Yes Past Ahayrvd-Kublzw-Wuvdts Hx Patient Social History Alcohol Use: Denies Use Alcohol Beverage of Choice: Cheap Liquor Recreational Drug Use: No Smoking Status: Current Everyday Smoker Type Used: Cigarettes 2nd Hand Smoke Exposure: No Recent Foreign Travel: No Contact w/Someone Who Travel: No Recent Hopitalizations: No Immunizations Up To Date Tetanus Booster (TDap): Less than 5yrs PED Vaccines UTD: Yes Date of Influenza Vaccine: Jun 19, 2019 Seasonal Allergies Seasonal Allergies: No Past Medical History Surgeries: No Respiratory: No Cardiac: No Neurological: No Headaches /Migraines Reproductive Disorders: No Female Reproductive Disorders: Denies Sexually Transmitted Disease: No HIV/AIDS: No Genitourinary: No Gastrointestinal: Yes Gastroesophageal Reflux Musculoskeletal: No Endocrine: No HEENT: No Cancer: No Psychosocial: Yes Integumentary: No Blood Disorders: No Adverse Reaction/Blood Tranf: No Family Medical History Diabetes mellitus MATERNAL GRANDFATHER Hypertension MATERNAL GRANDFATHER MATERNAL GRANDMOTHER Myocardial infarction PATERNAL GRANDFATHER GI Disease Physical Exam Vital Signs Vital Signs - First Documented 07/22/20 11:45 Temp 36.1 Pulse 68 Resp 18 B/P (MAP) 138/58 (84) Pulse Ox 99 O2 Delivery Room Air Capillary Refill : Height, Weight, BMI Height: 5'3.00" Weight: 150lbs. 0.0oz. 68.448708hk; 26.60 BMI Method:Stated General Appearance: No Apparent Distress, Mild Distress HEENT: PERRL/EOMI, Normal ENT Inspection, Pharynx Normal, Moist Mucous Membranes Progress/Results/Core Measures Results/Orders Lab Results Laboratory Tests Test 07/22/20 11:58 07/22/20 12:10 Range/Units Urine Color YELLOW Urine Clarity CLEAR Urine pH 7.0 5-9 Urine Specific [place] 1.020 1.016-1.022 Urine Protein NEGATIVE NEGATIVE Urine Glucose (UA) NEGATIVE NEGATIVE Urine Ketones NEGATIVE NEGATIVE Urine Nitrite NEGATIVE NEGATIVE Urine Bilirubin NEGATIVE NEGATIVE Urine Urobilinogen 0.2 < = 1.0 MG/DL Urine Leukocyte Esterase TRACE H NEGATIVE Urine RBC (Auto) NEGATIVE NEGATIVE Urine RBC RARE /HPF Urine WBC RARE /HPF Urine Squamous Epithelial Cells 2-5 /HPF Urine Crystals NONE /LPF Urine Bacteria NEGATIVE /HPF Urine Casts NONE /LPF Urine Mucus NEGATIVE /LPF Urine Culture Indicated NO White Blood Count 6.4 4.3-11.0 10^3/uL Red Blood Count 4.67 3.80-5.11 10^6/uL Hemoglobin 13.4 11.5-16.0 g/dL Hematocrit 41 35-52 % Mean Corpuscular Volume 88 80-99 fL Mean Corpuscular Hemoglobin 29 25-34 pg Mean Corpuscular Hemoglobin Concent 33 32-36 g/dL Red Cell Distribution Width 13.2 10.0-14.5 % Platelet Count 230 130-400 10^3/uL Mean Platelet Volume 10.4 9.0-12.2 fL Immature Granulocyte % (Auto) 0 % Neutrophils (%) (Auto) 70 42-75 % Lymphocytes (%) (Auto) 23 12-44 % Monocytes (%) (Auto) 5 0-12 % Eosinophils (%) (Auto) 1 0-10 % Basophils (%) (Auto) 0 0-10 % Neutrophils # (Auto) 4.5 1.8-7.8 10^3/uL Lymphocytes # (Auto) 1.5 1.0-4.0 10^3/uL Monocytes # (Auto) 0.3 0.0-1.0 10^3/uL Eosinophils # (Auto) 0.1 0.0-0.3 10^3/uL Basophils # (Auto) 0.0 0.0-0.1 10^3/uL Immature Granulocyte # (Auto) 0.0 0.0-0.1 10^3/uL Sodium Level 135 135-145 MMOL/L Potassium Level 3.9 3.6-5.0 MMOL/L Chloride Level 103 98-107 MMOL/L Carbon Dioxide Level 20 L 21-32 MMOL/L Anion Gap 12 5-14 MMOL/L Blood Urea Nitrogen 6 L 7-18 MG/DL Creatinine 0.66 0.60-1.30 MG/DL Estimat Glomerular Filtration Rate > 60 BUN/Creatinine Ratio 9 Glucose Level 84 70-105 MG/DL Calcium Level 9.3 8.5-10.1 MG/DL Corrected Calcium 9.0 8.5-10.1 MG/DL Total Bilirubin 0.7 0.1-1.0 MG/DL Aspartate Amino Transf (AST/SGOT) 18 5-34 U/L Alanine Aminotransferase (ALT/SGPT) 27 0-55 U/L Alkaline Phosphatase 81 40-136 U/L Total Protein 7.6 6.4-8.2 GM/DL Albumin 4.4 3.2-4.5 GM/DL My Orders Orders - GENESIS,JERICA J Ua Culture If Indicated (07/22/20 11:31) Urine Bedside (07/22/20 11:31) Acetaminophen Tablet (Tylenol Tablet) (07/22/20 12:00) Us Ob Single Fetus<14 [id number] (07/22/20 12:02) Cbc With Automated Diff (07/22/20 12:02) Comprehensive Metabolic Panel (07/22/20 12:02) Medications Given in ED Current Medications Medications Dose Ordered Sig/Ines Route Start Time Stop Time Status Last Admin Dose Admin Acetaminophen 1,000 mg ONCE ONCE PO 07/22/20 12:00 07/22/20 12:01 DC 07/22/20 12:09 1,000 MG Vital Signs/I&O 07/22/20 11:45 Temp 36.1 Pulse 68 Resp 18 B/P (MAP) 138/58 (84) Pulse Ox 99 O2 Delivery Room Air Progress Progress Note : Time: 14:05 Progress Note Positive. Discussed the case with Dr. SEPULVEDA and he says it really get ultrasound then a quantitative IS not necessary. He did recommend pelvic rest and follow-up in the clinic. Diagnostic Imaging Diagonstic Imaging: Ultrasound Plain Films/CT/US/NM/MRI: pelvis Comments NAME: MARK ARCHIBALD [facility] REC#: [id number] PT STATUS: REG ER : 1995 PHYSICIAN: JERICA HURTADO MD ADMIT DATE: 07/22/20/ER Draft Date of Exam:07/22/20 US OB SINGLE FETUS<14 [id number] PROCEDURE: US OB SINGLE FETUS <14 WKS. TECHNIQUE: Multiple real-time grayscale images were obtained over the gravid uterus in various projections. INDICATION: First trimester bleeding. FINDINGS: There is an intrauterine gestational sac containing a pole. [place]-rump length measurement is 2.6 cm consistent with 9 weeks 3 days gestational age. heart rate was recorded at 167 bpm. There is jane-gestational sac hemorrhage along the anterior aspect of the gestational sac. Ovaries are unremarkable. No adnexal mass or free fluid is seen. IMPRESSION: Single live IUP 9 weeks 3 days gestational age. Estimated date of confinement sonographically is 02/21/2021. Gestational sac hemorrhage is present. Dictated on workstation # [id number] Dict: 07/22/20 1333 Trans: 07/22/20 1340 [facility] [id number] Interpreted by: CATY PICKARD MD Electronically signed by: Reviewed: Reviewed by Me Departure Impression Primary Impression: gestational sac hemorrhage Additional Impression: Intrauterine Disposition: HOME, SELF-CARE Condition: Stable Departure-Patient Inst. Decision time for Depature: 14:07 Referrals: MOHIT SEPULVEDA ANGELA C DO (PCP/Family) Primary Care Physician Patient Instructions: Bleeding With (DC), - The Third Month Add. Discharge Instructions: Drink plenty of fluids. Nothing in the vagina until you have seen in your OB provider. Plan to follow up with an OB provider to establish care. vitamins daily. Work on smoking cessation. Tylenol 1000 mg every 8 hours as necessary for pain. Heating pads and topical creams such as icy hot or Biofreeze as necessary for pain. All discharge instructions reviewed with patient and/or family. Voiced understanding. Scripts Vits #93/Iron Fum/FA ( Formula Tablet) 1 Each Tablet 1 EACH PO DAILY for 30 Days, #30 TAB 0 Refills Prov: JERICA HURTADO 07/22/20 JERICA HURTADO Jul 22, 2020 12:09
[2020-07-22 12:19] LABS: BASOPHILS % (AUTO) 0 % (0-10); EOSINOPHILS # (AUTO) 0.1 10^3/uL (0.0-0.3); EOSINOPHILS % (AUTO) 1 % (0-10); HEMATOCRIT 41 % (35-52); HEMOGLOBIN 13.4 g/dL (11.5-16.0); LYMPHOCYTES # (AUTO) 1.5 10^3/uL (1.0-4.0); LYMPHOCYTES % (AUTO) 23 % (12-44); MEAN CORPUSCULAR HEMOGLOBIN 29 pg (25-34); MEAN CORPUSCULAR HGB CONC 33 g/dL (32-36); MEAN CORPUSCULAR VOLUME 88 fL (80-99); MEAN PLATELET VOLUME 10.4 fL (9.0-12.2); MONOCYTES # (AUTO) 0.3 10^3/uL (0.0-1.0); MONOCYTES % (AUTO) 5 % (0-12); NEUTROPHILS # (AUTO) 4.5 10^3/uL (1.8-7.8); NEUTROPHILS % (AUTO) 70 % (42-75); PLATELET COUNT 230 10^3/uL (130-400); WHITE BLOOD COUNT 6.4 10^3/uL (4.3-11.0)
--- NOTE | 2020-07-22 12:36 | NUR ---
TO SONO PER W/C
[2020-07-22 12:43] LABS: ALANINE AMINOTRANSFERASE 27 U/L (0-55); ALBUMIN 4.4 GM/DL (3.2-4.5); ALKALINE PHOSPHATASE 81 U/L (40-136); BILIRUBIN,TOTAL 0.7 MG/DL (0.1-1.0); BUN/CREATININE RATIO 9; CALCIUM 9.3 MG/DL (8.5-10.1); CARBON DIOXIDE 20 MMOL/L (21-32); CHLORIDE 103 MMOL/L (98-107); CREATININE SERUM 0.66 MG/DL (0.60-1.30); GFR ESTIMATED > 60; GLUCOSE 84 MG/DL (70-105); POTASSIUM 3.9 MMOL/L (3.6-5.0); SODIUM 135 MMOL/L (135-145); TOTAL PROTEIN 7.6 GM/DL (6.4-8.2)
--- NOTE | 2020-07-22 13:41 | Diagnostic Imaging Report ---
PROCEDURE: US OB SINGLE FETUS <14 WKS. TECHNIQUE: Multiple real-time grayscale images were obtained over the gravid uterus in various projections. INDICATION: First trimester bleeding. FINDINGS: There is an intrauterine gestational sac containing a pole. [place]-rump length measurement is 2.6 cm consistent with 9 weeks 3 days gestational age. heart rate was recorded at 167 bpm. There is jane-gestational sac hemorrhage along the anterior aspect of the gestational sac. Ovaries are unremarkable. No adnexal mass or free fluid is seen. IMPRESSION: Single live IUP 9 weeks 3 days gestational age. Estimated date of confinement sonographically is 02/21/2021. Gestational sac hemorrhage is present. Dictated by: Dictated on workstation # [id number]
[2020-07-22] MEDS ORDERED: PREN-102 PO (14:11)
[2020-07-22 14:18] VITALS: BP 138/58
== END 2020-07-22 14:18 | disposition home or self-care (01) ==
LOC: EDUNIT# 11:30 → ER 11:32
DX: O26.891 Other specified pregnancy related conditions, first trimester (principal); O00.01 Abdominal pregnancy with intrauterine pregnancy; Z3A.10 10 weeks gestation of pregnancy; F17.210 Nicotine dependence, cigarettes, uncomplicated; Z82.49 Family history of ischemic heart disease and other diseases of the circulatory system; Z83.3 Family history of diabetes mellitus
CPT/HCPCS: 36415; 76801; 80053; 81000; 84703; 85025

== ENCOUNTER → 2020-12-10 | Outpatient (CLI) | payer MEDICAID ==
[~2020-12-10] MED LIST changes: +PREN-102 PO
--- NOTE | 2020-12-10 17:02 | Diagnostic Imaging Report ---
INDICATION: Assessment during normal . TECHNIQUE: Multiple real-time grayscale images were obtained over the gravid uterus. This included transvaginal imaging. COMPARISON: 07/22/2020. FINDINGS: Single live intrauterine , currently in a transverse orientation, head to maternal right. Normal amount of amniotic fluid, index at 13.25 cm. Placenta is anterior without evidence for previa. Cervical length at 4.2 cm. Visualized anatomical structures including the kidneys, bladder, stomach, four-chamber heart, three-vessel cord insertion site, spine are unremarkable. There is however suboptimal evaluation of the brain anatomy as well as portion of the spine owing to positioning. Biometrical measurements are as follows: Biparietal 7.26 cm, age 29 weeks 1 days. Head circumference 26.72 cm, age 29 weeks 1 days. Abdominal circumference 25.55 cm, age 29 weeks 6 days. Femur length 5.49 cm, age 29 weeks 0 days. Sonographic estimate age: 29 weeks 2 days. Sonographic estimated date of delivery: 02/23/2021. Estimated Weight: 1383 gm (+/- 202 gm). LMP percentile: 93%. heart rate: 139 beats per minute. number: 1 of 1. Maternal adnexa not visualized. IMPRESSION: 1. Single live intrauterine currently in transverse orientation. Sonographic estimated age 29 weeks 2 days for estimated date of delivery February 23, 2021. This corresponds to appropriate growth from initial ultrasound dating. 2. No abnormalities demonstrated at this time. However, there is suboptimal imaging of the brain and portion of the spine owing to positioning. Dictated by: Dictated on workstation # [id number]
== END ==
LOC: RAD 12:44
PROVIDERS: ATTEND Obstetrics & Gynecology
DX: O44.43 Low lying placenta NOS or without hemorrhage, third trimester (principal); O09.33 Supervision of pregnancy with insufficient antenatal care, third trimester; Z3A.29 29 weeks gestation of pregnancy
CPT/HCPCS: 76805

== ENCOUNTER → 2021-01-05 | Outpatient (CLI) | payer MEDICAID ==
--- NOTE | 2021-01-05 14:42 | Diagnostic Imaging Report ---
INDICATION: Followup anatomy. TECHNIQUE: Multiple Real-time grayscale images were obtained over the gravid uterus. COMPARISON: 12/10/2020. FINDINGS: There is a single live fetus in a cephalic presentation. The heart rate was recorded at 150 BPM. The placenta is anterior. The amniotic fluid volume is normal. The head anatomy was better visualized on today's study and appears unremarkable. Images of the spine are unremarkable. IMPRESSION: Unremarkable limited obstetrical ultrasound. Dictated by: Dictated on workstation # [id number]
== END ==
LOC: RAD 13:00
PROVIDERS: ATTEND Obstetrics & Gynecology
DX: Z36.9 Encounter for antenatal screening, unspecified (principal)
CPT/HCPCS: 76816

== ENCOUNTER 2021-01-07 17:30 | Outpatient (CLI) | payer MEDICAID ==
[~2021-01-07] VITALS: Ht 160 cm; Wt 72.8 kg
[2021-01-07 17:45] VITALS: BP 136/65
[2021-01-07 18:10] VITALS: BP 110/59
[2021-01-07 18:30] VITALS: BP 107/50
[2021-01-07 18:42] LABS: BILIRUBIN,URINE NEGATIVE (NEGATIVE); CLARITY,URINE SL CLOUDY; COLOR,URINE ORANGE; GLUCOSE, URINE (UA) NEGATIVE (NEGATIVE); KETONES,URINE NEGATIVE (NEGATIVE); LEUKOCYTE ESTERASE ,URINE 2+ (NEGATIVE); NITRITE,URINE NEGATIVE (NEGATIVE); PH,URINE 6.5 (5-9); PROTEIN,URINE 1+ (NEGATIVE)
[2021-01-07 18:48] LABS: RBC,URINE RARE /HPF
[2021-01-07 18:49] LABS: BACTERIA,URINE MODERATE /HPF
[2021-01-07] MEDS ORDERED: NITR-65 PO (19:04)
[2021-01-07 19:05] VITALS: BP 125/69
[2021-01-07] MEDS ORDERED: NS IV 1000 ML 1,000 ML IV SCH (19:15)
[2021-01-07 20:20] VITALS: BP 117/69
--- NOTE | 2021-01-10 08:42 | Physician Query-Final Dx ---
MISAEL LAUREANO 01/10/21 0842: Clinic Account Progress/Dx Physician Query: Please give diagnosis Please include # weeks gestation Date of Service Jan 07, 2021 at 17:30 MOHIT SEPULVEDA DO 01/11/21 0836: Clinic Account Progress/Dx DIAGNOSIS: Diagnosis 33 week IUP Acute gastroenteritis MISAEL LAUREANO January 10, 2021 08:42 MOHIT SEPULVEDA DO January 11, 2021 08:36
== END 2021-01-07 20:25 | disposition home or self-care (01) ==
LOC: WSo 17:30 → LDRP 17:31 → WSo 20:25
PROVIDERS: ATTEND Obstetrics & Gynecology
DX: Z34.93 Encounter for supervision of normal pregnancy, unspecified, third trimester (principal); Z3A.32 32 weeks gestation of pregnancy
CPT/HCPCS: 81000; 87088; 96360; 99213

== ENCOUNTER 2021-02-01 06:37 | Inpatient (IN) | payer MEDICAID ==
[~2021-02-01] VITALS: Ht 160 cm; Wt 75.0 kg
[2021-02-01] VITALS (41 sets, daily range): BP systolic 101–150; BP diastolic 53–78
[~2021-02-01 06:37] MED LIST changes: +NITR-65 PO
[2021-02-01] MEDS ORDERED: D5 LR IV SOLUTION 1,000 ML IV ONE ×2 (07:05→07:15)
[2021-02-01] MEDS ORDERED: LIDOCAINE/EPI 2% 1:200,00 (XYLOCAINE) 20 ML VIAL ONE (08:14)
[2021-02-01] MEDS ORDERED: ONDANSETRON 4 MG/2 ML (SDV) Z0FRAN ONE (08:14)
[2021-02-01] MEDS ORDERED: OXYTOCIN PRE-MIX DRIP 500 ML IV ONE (08:14)
[2021-02-01] MEDS ORDERED: fentaNYL 2 mcg/ml BUPIVA 0.125 100 ML ONE (08:26)
[2021-02-01] MEDS ORDERED: ONDANSETRON 4 MG/2 ML (SDV) Z0FRAN IVP ONE (08:30)
[2021-02-01 08:44] LABS: BASOPHILS % (AUTO) 0 % (0-10); EOSINOPHILS % (AUTO) 0 % (0-10); HEMATOCRIT 34 % (35-52); HEMOGLOBIN 10.5 g/dL (11.5-16.0); LYMPHOCYTES # (AUTO) 1.6 10^3/uL (1.0-4.0); LYMPHOCYTES % (AUTO) 15 % (12-44); MEAN CORPUSCULAR HEMOGLOBIN 26 pg (25-34); MEAN CORPUSCULAR HGB CONC 31 g/dL (32-36); MEAN CORPUSCULAR VOLUME 82 fL (80-99); MEAN PLATELET VOLUME 10.5 fL (9.0-12.2); MONOCYTES # (AUTO) 0.5 10^3/uL (0.0-1.0); MONOCYTES % (AUTO) 4 % (0-12); NEUTROPHILS # (AUTO) 8.7 10^3/uL (1.8-7.8); NEUTROPHILS % (AUTO) 80 % (42-75); PLATELET COUNT 229 10^3/uL (130-400); WHITE BLOOD COUNT 10.8 10^3/uL (4.3-11.0)
--- NOTE | 2021-02-01 08:48 | History & Physical ---
History and Physical Date Seen by Provider: February 01, 2021 Time Seen by Provider: 08:46 This patient is a 25-year-old 5 para [address] female patient of Dr. Gautam who presents at 36+ weeks gestation with complaints of pressure pain and contractions and spotting. On initial evaluation her cervix was 3 cm dilated about an hour later she was 5 cm dilated. She appears to be in labor. Her GBS culture was negative. She has had no problems with this . Patient is admitted for labor management. She has requested an epidural which we will allow Allergies are none Medications are vitamins Medical social and surgical history is all per the antepartum record HEENT exam is normal Neck is supple no lymphadenopathy no thyromegaly Abdomen is gravid soft nontender nondistended Extremities show no clubbing cyanosis. There is no Homans' sign. Pelvic exam Per labor and delivery nurse shows a cervix 5 cm dilated 100% effaced with a bulging bag and a vertex presentation Assessment and plan labor at 36-2/7 weeks gestation. We will admit for labor as she is less than 37 weeks we will give a dose of betamethasone should she remain for 24 hours would repeat that dose. If she does not progress in labor we are prepared for delivery. Dr. Gautam is aware of this patient but is unavailable at this time 36 weeks with labor Allergies and Home Medications Allergies Coded Allergies: No Known Drug Allergies (Unverified , 02/01/21) Home Medications Vit No.124/Iron/FA 1 Each Tablet, 1 EACH PO DAILY, (Reported) Last Action: Reviewed Patient Home Medication List Home Medication List Reviewed: Yes VANNA RITCHIE MD February 01, 2021 08:48
[2021-02-01] MEDS ORDERED: BETAMETHASONE ACE/NA PHOS 6 MG/ML (CELESTONE SOLUSPAN) IM SCH (09:00)
[2021-02-01] MEDS ORDERED: OXYC1TAB87 PO (09:12)
[2021-02-01] MEDS ORDERED: DOCU-143 PO (09:12)
[2021-02-01] MEDS ORDERED: IBUP-1780 PO (09:12)
--- NOTE | 2021-02-01 09:13 | Discharge Inst-Surgical ---
Discharge Inst-Surgical Depart Medication/Instructions New, Converted or Re-Newed RX: RX on Chart Consults/Follow Up Patient Instructions: As directed Orders & Referrals Follow Up Appt: Call to make follow up appt. for patient in [address] Gautam Activity Per routine post vaginal delivery instructions. Please call in RX to patient pharmacy. Diet as tolerated Patient may shower or tub bathe as desired. Activity Activity as Tolerated: No Diet Discharge Diet: No Restrictions VANNA RITCHIE MD February 01, 2021 09:13
[2021-02-01] MEDS ORDERED: LACTATED RINGERS 1,000 ML IV SCH (09:15)
[2021-02-01] MEDS ORDERED: METOCLOPRAMIDE INJ 10 MG/2 ML (REGLAN) IV PRN (09:15)
[2021-02-01] MEDS ORDERED: diphenhydrAMINE 50 MG/ML INJ (BENADRYL) IV PRN (09:15)
[2021-02-01] MEDS ORDERED: ONDANSETRON 4 MG/2 ML (SDV) Z0FRAN IV PRN (09:15)
[2021-02-01] MEDS ORDERED: NALOXONE 0.4 MG/ML 1 ML (NARCAN) VIAL IV PRN ×2 (09:15)
[2021-02-01] MEDS ORDERED: EPIDURAL (fentaNYL 2 MCG/ML BUPIVA 0.125%)100 ML BAG EPI SCH (09:15)
--- NOTE | 2021-02-01 13:13 | OPERATIVE REPORT ---
DATE OF SERVICE: 02/01/2021 DELIVERY NOTE The patient delivered by spontaneous vaginal delivery a viable female with Apgars of 8 and 9 at 1 and 5 minutes respectively. Weight is 6 pounds 6 ounces, cord blood pH is 7.22. time of 12:04. The delivered from straight OP position without difficulty. The infant was bulb suctioned on delivery of the head and again on completion of delivery. The umbilical cord when pulseless was doubly clamped, father cut the cord, the baby was passed briefly to the mom's abdomen. Dr. Walker was on hand for the delivery secondary to prematurity. The placenta delivered fairly promptly spontaneously [place]. It was associated with a large amount of adherent clot evidence of about a 10% to 15% at least placental abruption. The amniotic fluid when amniotomy was performed port wine appearing fluid and the patient had been passing organized clots during the last stages of the active labor. The placenta was sent to pathology for permanent section. The cervix, vagina, rectum, and perineum were examined and found intact. Sponge and needle counts were correct on completion of delivery. Blood loss was around 300 mL, but that would include the blood clot from the abruption as well. There was fairly minimal bleeding from the uterus. After delivery, the uterus contracted very nicely. The patient tolerated the delivery well and remained in the LDR for recovery. The baby remained in the LDR under the care of Dr. Walker. Job ID: [id number] DocumentID: [id number] Dictated Date: 02/01/2021 12:22:27 Wet Process Head Miller Date: 02/01/2021 13:11:50 Dictated By: VANNA RITCHIE MD [facility]
[2021-02-01] MEDS ORDERED: TETANUS,DIPTH,PERTUSS P/F (BOOSTRIX) 0.5 ML VIAL IM ONE (14:30)
[2021-02-01] MEDS ORDERED: BENZOCAINE/MENTHOL (DERMOPLAST) 56 ML CAN TP PRN (14:30)
[2021-02-01] MEDS ORDERED: oxyCODONE/APAP 5/325MG (PERCOCET 5) TABLET PO PRN (14:30)
[2021-02-01] MEDS ORDERED: MEASLES,MUMPS,RUBELLA 1 EA INJ SC ONE (14:30)
[2021-02-01] MEDS ORDERED: OXYTOCIN PRE-MIX DRIP 500 ML IV SCH (14:30)
[2021-02-01] MEDS ORDERED: ONDANSETRON 4 MG/2 ML (SDV) Z0FRAN IVP PRN (14:30)
[2021-02-01] MEDS ORDERED: KETOROLAC 30 MG/ML VIAL IVP SCH (14:30)
[2021-02-01] MEDS ORDERED: IBUPROFEN 800 MG (MOTRIN) TAB PO ONE ×2 (21:46→21:56)
[2021-02-01] MEDS: DOCUSATE SODIUM 100 MG (COLACE) CAP PO SCH (21:55)
[2021-02-02] VITALS: BP 115/65
[2021-02-02] MEDS ORDERED: IBUPROFEN 800 MG (MOTRIN) TAB PO ONE (03:54)
[2021-02-02 04:11] VITALS: BP 116/64
--- NOTE | 2021-02-02 07:59 | Progress Note ---
Standard Progress Note Progress Notes/Assess & Plan Date Seen by a Provider: February 02, 2021 Time Seen by a Provider: 07:58 Progress/Assessment & Plan This patient is without complaint. She is ambulating, voiding, tolerating oral intake well and has good pain control. Patient is requesting discharge home. Vital Signs 02/02/21 04:11 Temp 36.5 Pulse 72 Resp 20 B/P (MAP) 116/64 (81) Pulse Ox 98 O2 Delivery Room Air Vital signs are stable. Patient is afebrile. Fundus is firm below the umbilicus and nontender. Extremities show no clubbing or cyanosis. There is no Homans' sign. Assessment and plan Postoperative day/ day #1 status post spontaneous vaginal delivery at 36+ weeks gestation. Patient is doing well and will be allowed discharge home Final Diagnosis 36-week spontaneous vaginal delivery VANNA RITCHIE MD February 02, 2021 07:59
[2021-02-02 08:45] VITALS: BP 114/62
[2021-02-02] MEDS: DOCUSATE SODIUM 100 MG (COLACE) CAP PO SCH (08:50)
[2021-02-02] MEDS: IBUPROFEN 800 MG (MOTRIN) TAB PO SCH ×2 (09:39→16:42)
[2021-02-02 12:45] VITALS: BP 118/61
--- NOTE | 2021-02-02 13:05 | Anesthesia-Regional Post-Op ---
Regional Patient Condition Mental Status: Alert, Oriented x3 Circulation: Same as Pre-Op Headache: Absent Sensation: Full Recovery Motor Block: Absent Post Op Complications Complications None Follow Up Care/Instructions Patient Instructions None needed. Anesthesia/Patient Condition Patient is doing well, no complaints, stable vital signs, no apparent adverse anesthesia problems. No complications reported per nursing. SEFERINO ASHLEY CRNA February 02, 2021 13:05
[2021-02-02 18:40] VITALS: BP 118/61
== END 2021-02-02 18:40 | disposition home or self-care (01) | DRG 805 ==
LOC: WSo 06:37 → LDRP 06:38 → WSo 07:56 → LDRP 07:56
PROVIDERS: ADMIT Obstetrics & Gynecology; ATTEND Obstetrics & Gynecology
PROC: 10E0XZZ Delivery of Products of Conception, External Approach (ICD-10-PCS; principal; 2021-02-01)
DX: O60.14X0 Preterm labor third trimester with preterm delivery third trimester, not applicable or unspecified (principal); O45.93 Premature separation of placenta, unspecified, third trimester; Z37.0 Single live birth; Z3A.36 36 weeks gestation of pregnancy
CPT/HCPCS: 36415; 85025; 86850; 86900; 86901; 99212

== ENCOUNTER 2021-12-28 13:51 | Emergency (ER) | payer MEDICAID ==
[~2021-12-28] VITALS: Ht 165.1 cm; Wt 75.0 kg
[~2021-12-28 13:51] MED LIST changes: +ACHD5005 PO; +DOCU-143 PO; +IBUP-1780 PO; +OXYC1TAB87 PO; -SULF1TAB35 PO; +SULF1TAB38 PO
[2021-12-28 13:55] VITALS: BP_SYST 142
--- NOTE | 2021-12-28 14:05 | ED Upper Extremity ---
General Stated Complaint: L HAND THUMB WEBSPACE LAC Source: patient Exam Limitations: no limitations History of Present Illness Date Seen by Provider: Dec 28, 2021 Time Seen by Provider: 14:02 Initial Comments Wound to the webspace of the left hand between the thumb and pointer finger. Tetanus is up-to-date within the last 5 years. No tingling in any of the fingers. This was from a kitchen knife while doing dishes just prior to arrival. Onset: just prior to arrival Severity: moderate Pain/Injury Location: left hand Method of Injury: direct blow Modifying Factors: Worse With Movement Allergies and Home Medications Allergies Coded Allergies: No Known Drug Allergies (Unverified , 02/01/21) Patient Home Medication List Home Medication List Reviewed: Yes Docusate Sodium (Colace) 100 Mg Capsule, 100 MG PO BID Prescribed by: VANNA CAREY on 02/01/21 0912 Hydrocodone/Acetaminophen (Hydrocodone-Acetamin 5-325 mg) 1 Each Tablet, 1-2 TAB PO Q6H PRN for PAIN-MODERATE (5-7) Prescribed by: MOHIT SEPULVEDA on 10/13/21 1342 Ibuprofen (Ibuprofen) 800 Mg Tablet, 800 MG PO Q6H PRN for PAIN Prescribed by: VANNA CAREY on 02/01/21 0912 Ibuprofen (Ibuprofen) 600 Mg Tablet, 600 MG PO Q6H Prescribed by: MOHIT SEPULVEDA on 10/13/21 1341 Oxycodone HCl/Acetaminophen (Percocet 5-325 mg Tablet) 1 Each Tablet, 1 TAB PO Q4H Prescribed by: VANNA CAREY on 02/01/21 0912 Vit No.124/Iron/FA ( Vitamin Tablet) 1 Each Tablet, 1 EACH PO DAILY, (Reported) Entered as Reported by: JORGE L BERG on 05/12/19 1710 Review of Systems Constitutional: see HPI EENTM: see HPI Respiratory: no symptoms reported Cardiovascular: no symptoms reported Genitourinary: no symptoms reported Musculoskeletal: see HPI Skin: no symptoms reported Psychiatric/Neurological: No Symptoms Reported Past Yycyfbo-Wjapdn-Eilmij Hx Immunizations Up To Date Tetanus Booster (TDap): Less than 5yrs PED Vaccines UTD: Yes Seasonal Allergies Seasonal Allergies: No Past Medical History Surgeries: No Respiratory: No Cardiac: No Neurological: No Headaches /Migraines Reproductive Disorders: No Female Reproductive Disorders: Denies Sexually Transmitted Disease: No HIV/AIDS: No Genitourinary: No Gastrointestinal: Yes Gastroesophageal Reflux Musculoskeletal: No Endocrine: No HEENT: No Cancer: No Psychosocial: Yes Integumentary: No Blood Disorders: No Adverse Reaction/Blood Tranf: No Family Medical History Diabetes mellitus MATERNAL GRANDFATHER Hypertension MATERNAL GRANDFATHER MATERNAL GRANDMOTHER Myocardial infarction PATERNAL GRANDFATHER GI Disease Physical Exam Vital Signs Capillary Refill : Height, Weight, BMI Height: 5'3.00" Weight: 150lbs. 0.0oz. [id number]; 29.29 BMI Method:Stated General Appearance: WD/WN, no apparent distress Respiratory: no respiratory distress, no accessory muscle use Shoulder: normal inspection, non-tender Elbow/Forearm: normal inspection, non-tender Wrist: Yes normal inspection, Yes non-tender Neurologic/Tendon: normal sensation, normal motor functions Neurologic/Psychiatric: alert, normal mood/affect, oriented x 3 Skin: normal color, warm/dry, other (Small 3 mm puncture wound to the webspace between the thumb and pointer finger that appears no deep within the subcutaneous tissue. No active bleeding. She has this covered with a Band-Aid. We will apply some topical antibiotic ointment.) Departure Impression Primary Impression: Puncture wound of hand, left Disposition: 01 HOME, SELF-CARE Condition: Stable Departure-Patient Inst. Decision time for Depature: 14:04 Referrals: NO,LOCAL PHYSICIAN (PCP/Family) Primary Care Physician Patient Instructions: Wound Care (DC) Add. Discharge Instructions: 1. Wash gently with soap and water twice daily. Apply the topical antibiotic ointment twice a day. Keep it covered with a Band-Aid for a few days. MEI GOODEN SURVEILLANCE INVESTIGATOR Dec 28, 2021 14:05
[2021-12-28 14:07] VITALS: BP_DIAS 85
== END 2021-12-28 14:10 | disposition home or self-care (01) ==
LOC: EDUNIT# 13:51 → ER 13:53
DX: S61.432A Puncture wound without foreign body of left hand, initial encounter (principal); W26.0XXA Contact with knife, initial encounter; Y93.G1 Activity, food preparation and clean up